=== PATIENT | male | born 2000 | race Caucasian/White ===

== ENCOUNTER 2022-11-19 08:37 | Outpatient (AMB) | payer OTHER, SELFPAY ==
[2022-11-19 08:40] VITALS: BP 122/70; PULSE 64; O2SAT 98; BMI 26.3
--- NOTE | 2022-11-19 08:40 | A.OFFPC_ITS ---
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 Trimmer Required: No Allergies No Known Allergies Allergy (Verified 11/19/22 08:49) Medication List - Last Reconciled 11/19/22 by SHAGGY Butler No Known Home Meds Tobacco use date assessed: 11/19/22 Dental Screening Dental Screen Date: 11/19/22 Did you have a dental visit in the last 12 months?: Yes Did you have a dental problem in the last 6 months where you did not have access to dental care?: No Was dental information given to patient?: Patient has dentist HPI 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 Previous PCP at [facility] about 2 years ago. Medical h istory significant for bilateral hip pain R>L - patient reports that in the past he was diagnosed with right hip ligament sprain - reports pain for the past 1 year - denies injury - pain is with prolonged walking or activity-does not take anything for pain-denies numbness or tingling, ganglion cyst of right hand-would like to be seen by specialist ? Removal, anxiety-followed by [facility] therapist. Al so patient would like to be tested for ADHD due to difficulty concentrating. Tdap 2014. No shortness of breath or chest pain. Patient goes to college and he lives with his father and grandmother. [facility] Surgical History History of appendectomy Family History (Updated 11/19/22 @ 08:54 by SHAGGY Butler) Mother No problems noted. Father No problems noted. Social History Housing: Apartment Patient Tobacco Use Status: Never used Tobacco service: No Current occupational status: unemployed Cognitive needs: No Hearing needs: No Vision needs: No Questionnaire PHQ-9 Over the last 2 weeks, how often have you been bothered by any of the following problems? 1. Little interest or pleasure in doing things: not at all 2. Feeling down, depressed, or hopeless: not at all 3. Trouble falling or staying asleep, or sleeping too much: not at all 4. Feeling tired or having little energy: not at all 5. Poor appetite or overeating: not at all 6. Feeling bad about yourself - or that you are a failure or have let yourself or your family down: not at all 7. Trouble concentrating on things, such as reading the newspaper or watching television: not at all 8. Moving or speaking so slowly that other people could have noticed. Or the opposite - being so fidgety or restless that you have been moving around a lot more than usual: not at all 9. Thoughts that you would be better off or of hurting yourself in some way: not at all Total score: 0 Depression Screening Interpretation: Negative Depression Screening Done: Yes 79819 - PHQ-9 Billing: Yes Source: Developed by Drs. Wyatt العراقي, Leighann Anne, Tad Car and colleagues, with an educational clotilde from [employer]. Thrive Questionnaire Date Thrive assessed: 11/19/22 I am a: Patient What is your living situation today?: I have a steady place to live Within the past 12 months, did the food you bought not last and you didn't have the money to get more?: Never true Within the past 12 months, did you worry whether your food would run out before you got money to buy more?: Never true Do you have trouble paying for medicines?: No Do you have trouble getting transportation to medical appointments?: No Do you have trouble paying your heating and electricity bill?: No Do you have trouble taking care of your child, family member or friend?: No Do you have trouble with day-to-day activities such as bathing, preparing meals, shopping, managing finances, etc.?: No Are you currently unemployed and looking for a job?: No Are you interested in more education?: No Currently or been in a relationship where the following occur: no concerns reported AUDIT C Alcohol Use Questionnaire (AUDIT-C) 1. How often do you have a drink containing alcohol?: Monthly or less 2. How many drinks containing alcohol do you have on a typical day when you are drinking?: 1 or 2 3. How often do you have six or more drinks on one occasion?: Never Total Score: 1 Score Reviewed/Action Taken: No STEFANY-7 AMB Questionnaire STEFANY-7 Date STEFANY - 7 assessed: 11/19/22 Feeling nervous, anxious, or on edge: 2 = More than half the days Not being able to stop or control worryin = More than half the days Worrying too much about different things: 2 = More than half the days Trouble relaxin = More than half the days Being so restless that it is hard to sit still: 3 = Nearly every day Becoming easily annoyed or irritable: 2 = More than half the days Feeling afraid as if something awful might happen: 0 = Not at all Total STEFANY-7 score (0-4 normal; 5-9 mild; 10-14 moderate; 15-21 severe): 13 Source: Developed by Drs. Wyatt العراقي, Leighann Anne, Tad Car and colleagues, with an educational clotilde from [employer]. STEFANY-7 Assessment Billing STEFANY-7 Assessment Tool: STEFANY-7 Assessment 65885 Review of Systems Const Denies body aches, Denies chills, Denies fever(s) and Denies headache(s) Eyes Denies change in vision ENT Denies dizziness, Denies otalgia, Denies headache(s), Denies nasal discharge, Denies sinus pain and Denies sore throat Card Denies chest pain, Denies edema, Denies lightheadedness and Denies dyspnea Resp Denies cough, Denies dyspnea and Denies wheezing GI Denies abdominal pain, Denies constipation, Denies diarrhea, Denies nausea and Denies vomiting Denies dysuria Musc Denies myalgias, Reports arthralgias, Denies joint swelling, Denies numbness and Denies tingling Skin/Breast Denies rash Neuro Denies dizziness, Denies headache(s), Denies numbness and Denies tingling Aller/Immun Denies wheezing Physical exam (Primary Care) Vital Signs: Last Vital Signs Pulse 64 11/19/22 08:40 BP 122/70 11/19/22 08:40 Pulse Ox 98 11/19/22 08:40 Oxygen Delivery Method Room Air 11/19/22 08:40 BMI result Body Mass Index 26.3 Tobacco/Smoking Status: Tobacco use Status Tobacco use date assessed 11/19/22 11/19/22 08:46 Patient Tobacco Use Status Never used Tobacco 11/19/22 08:46 PHQ-9: PHQ-9 Score PHQ-9: Total score 0 11/19/22 08:56 Depression Screening Interpretation: Negative Thrive Assessment: Date of Thrive Assessment Date Thrive assessed 11/19/22 11/19/22 08:46 Currently or been in a relationship where the following occur: no concerns reported Const General: cooperative and no acute distress Orientation/consciousness: patient oriented x3 HENMT Head: Yes normocephalic and Yes atraumatic Ears: TM's normal bilaterally Face and sinus: Yes sinuses nontender Mouth: oropharynx normal and moist mucous membranes Throat: Yes posterior oropharynx normal Eyes General: appearance normal, both eyes and all related structures Pupils: Equal, round and reactive pupils present EOM: EOMs intact bilaterally Neck Neck: Yes normal visual inspection, Yes full ROM and Yes no lymphadenopathy Thyroid: Thyroid normal Resp Effort & Inspection: normal respiratory effort and able to speak in complete sentences Auscultation: clear to auscultation bilaterally, no crackles, no rales, no rhonchi and no wheezes Cardio Rate: regular rate Rhythm: regular rhythm Heart sounds: S1 normal heart sound present, S2 normal heart sound present and no murmurs GI Palpation (GI): Soft to palpation, not firm, nontender, no guarding, not rigid and no hepatosplenomegaly Auscultation: normal bowel sounds General: No CVA tenderness Back/Spine/Pelvis Back: No CVA tenderness Skin Other: Right wrist dorsal aspect slightly raised about 1cm tender area, skin is intact, no signs of infection noted Neuro General: patient oriented x3 Cranial nerves: Yes Equal, round and reactive pupils present Gait exam (Neuro): Normal gait present Extrem Other: Right hip nontender, pain with range of motion Left hip nontender, normal range of motion General: Yes full ROM and No edema Assessment and Plan Assessment & Plan (1) Anxiety: Code(s): F41.9 - Anxiety disorder, unspecified Plan: Continue to follow-up with therapist at [facility] (2) Adult general medical exam: Code(s): Z00.00 - Encounter for general adult medical examination without abnormal findings Plan: Repeat in 1 year Blood work ordered (3) ADHD (attention deficit hyperactivity disorder) evaluation: Code(s): Z13.39 - Encounter for screening examination for other mental health and behavioral disorders Plan: Psychiatry referral for ADHD evaluation (4) Ganglion cyst: Comment: right wrist Code(s): M67.40 - Ganglion, unspecified site Plan: Orthopedic referral for an evaluation (5) Bilateral hip pain: Code(s): M25.551 - Pain in right hip; M25.552 - Pain in left hip Plan: Suspect musculoskeletal in origin Physical therapy referral Patient can try [id number] Tylenol 650 mg every 6 hours as needed or ibuprofen 400 mg every 8 hours as needed for pain Follow-up if no improvement after physical therapy Orders: Orders Vitamin B12 and Folate 11/19/22 Z00.00 - Encounter for general adult medical examination without abnormal findings TSH reflex Free T4 11/19/22 Z00.00 - Encounter for general adult medical examination without abnormal findings Vitamin D 25-OH Total 11/19/22 Z00.00 - Encounter for general adult medical examination without abnormal findings Comprehensive Met. Panel 11/19/22 Z00.00 - Encounter for general adult medical examination without abnormal findings Complete Blood Count Auto Diff 11/19/22 Z00.00 - Encounter for general adult medical examination without abnormal findings PT Evaluation and Treatment 11/19/22 M25.551 - Pain in right hip, M25.552 - Pain in left hip Referrals Orthopedics Referral M67.40 - Ganglion, unspecified site Psychiatry Referral Z13.39 - Encounter for screening examination for other mental health and behavioral disorders Coding Level of Care Code New Pt Prev Care 18-39yr([id number] Diagnoses Anxiety F41.9 Adult general medical exam Z00.00 ADHD (attention deficit hyperactivity disorder) evaluation Z13.39 Ganglion cyst M67.40 Bilateral hip pain M25.551; M25.552 Additional Codes STEFANY-7 Assessment Billing - STEFANY-7 Assessment Tool: STEFANY-7 Assessment [id number] ([id number])
== END 2022-11-19 09:06 | disposition home or self-care (01) ==
PROVIDERS: PCP Nurse Practitioner Family; Visit Provider Nurse Practitioner Family
DX: Z00.00 Encounter for general adult medical examination without abnormal findings (principal); F41.9 Anxiety disorder, unspecified; Z13.39 Encounter for screening examination for other mental health and behavioral disorders; M67.40 Ganglion, unspecified site; M25.551 Pain in right hip; M25.552 Pain in left hip
CPT/HCPCS: 99385

== ENCOUNTER 2022-12-10 15:27 | Outpatient (REF) | payer OTHER, SELFPAY ==
[2022-12-10 15:44] LABS: MANUAL DIFF FLAG NO
[2022-12-10 16:21] LABS: Basophils Percent Auto 0.5 % (0-2); Eosinophils Absolute Auto 0.5 X10*3/uL (0.0-0.4); Eosinophils Percent Auto 7.9 % (0-4); Hematocrit 45.9 % (42.0-52.0); Hemoglobin 15.6 g/dl (14.0-18.0); Imm Gran Abs Auto 0.01 X10*3/uL (0.00-0.03); Imm Gran Pct Auto 0.2 % (0.0-0.4); Lymphocytes Absolute Auto 2.1 X10*3/uL (1.2-4.9); Lymphocytes Percent Auto 36.6 % (20-40); Mean Corpuscular Hemoglobin 29.7 pg (27.0-33.0); Mean Corpuscular Volume 87.3 fL (80.0-98.0); Mean Platelet Volume 11.5 fL (9.4-12.4); Monocytes Absolute Auto 0.5 X10*3/uL (0.1-1.2); Monocytes Percent Auto 7.9 % (2-11); Neutrophils Absolute Auto 2.7 x10*3/uL (2.0-8.3); Neutrophils Percent Auto 46.9 % (45-73); Platelet Count 211 X10*3/uL (160-400); Red Blood Count 5.26 X10*6/uL (4.60-5.80); Red Cell Distribution Width 12.6 % (11.0-16.0); White Blood Count 5.8 X10*3/uL (4.8-10.8)
[2022-12-10 16:52] LABS: Alanine Aminotransferase 18 U/L (0-40); Alkaline Phosphatase 102 U/L (39-117); Anion Gap 12 (12-20); Aspartate Amino Transferase 22 U/L (5-37); Bilirubin Total 0.8 mg/dL (0.0-1.0); Blood Urea Nitrogen 12 mg/dL (9-16); Calcium 10.1 mg/dL (8.4-10.2); Carbon Dioxide 29 mmol/L (22-29); Chloride 105 mmol/L (96-108); Estimated Glomerular Filt Rate > 60; Glucose Random 74 mg/dL (60-115); Potassium 3.8 mmol/L (3.3-5.1); Sodium 142 mmol/L (135-145); Total Protein 7.8 g/dL (6.5-8.0)
[2022-12-10 17:01] LABS: Vitamin D 25-OH Total 38.4 ng/mL (>30)
[2022-12-10 17:15] LABS: Folate 8.1 ng/mL (> or = 4.0); Vitamin B12 836 pg/mL (200-900)
[2022-12-10 18:24] LABS: Free T4 (Free Thyroxine) 0.89 ng/dL (0.71-1.85)
== END 2022-12-10 15:28 | disposition home or self-care (01) ==
LOC: HO.LAB 15:27
PROVIDERS: PCP Nurse Practitioner Family; Visit Provider Nurse Practitioner Family
DX: Z00.00 Encounter for general adult medical examination without abnormal findings (principal)
CPT/HCPCS: 36415; 80053; 82306; 82607; 82746; 84439; 84443; 85025

== ENCOUNTER 2023-05-16 12:00 | Outpatient (RCR) | payer OTHER, SELFPAY ==
--- NOTE | 2023-03-14 16:14 | MHC.PT.EP ---
[facility] [place] [facility] [place] [facility] [place] [facility] [address] Francisco J Hinojosa [address] [phone] F: [phone] F: [phone] F: [phone] F: [phone] Physical Therapy Plan of Care Date of Evaluation: 03/14/23 Date of Surgery: Diagnosis: pain in B hips Assessment: Rohit is a pleasant 22 yo male presenting to skilled physical therapy evaluation and treatment with c/o B hip pain. Pt reports gradual onset of sharp deep pain in B hips beginning ~1 year ago, with worsening s/s within the past 6 months. He denies prior injuries or recent imaging. Pt has the most functional difficulty with STS, prolonged sitting with hip IR, and is unable to participate in desired level of recreational activities. Upon evaluation, pt presents with pain, decreased hip ROM, significant hip flexor tightness, and impaired accessory joint mobility. Pt demonstrates postural deficits contributing to decreased hip stability which is exacerbated throughout gait and mobility. Current impairments in combination with physical activity/lifestyle changes are contributing to pain and impaired mobility. Rohit would benefit from skilled PT services to address muscular imbalances, increase hip/core stability, and provide education on body mechanics to maximize functional mobility and return to desired PLOF. Pt is recommended to participate in PT 2x/week for 4 weeks. Frequency and Duration: The patient will be seen 2x/week for 4 weeks Short Term Goals: Pt will demonstrate independence with initial HEP through teach-back method indicating proper adherence to PT Pt will achieve symmetrical pain free hip ROM WFL allowing for proper gait mechanics Pt will perform 10 consecutive STS with proper mechanics and no exacerbation of sx Side Stapler Goals: Pt will increase glute MMTs by at least 1/2 muscle grade showing improved hip stability necessary for weightbearing Pt will tolerate running 1 mile on even terrain with proper mechanics and no exacerbation of s/s Pt will demonstrate improved functional mobility as evidenced by statistically significant increase in LEFI outcome measure Treatment Plan: Modalities to reduce pain, spasms and effusion. Manual therapy to restore motion and function. Therapeutic exercise to improve strength and flexibility. Neuromuscular re-education for posture and balance. Therapeutic activities to return to functional activities of daily living. Electronically signed by: Amelia Ball, PT, DPT Please sign and return to therapist. Thank you for your referral.
--- NOTE | 2023-07-05 14:48 | MHC.PT.DC ---
[facility] [place] [facility] [place] [facility] [place] [facility] [address] Francisco J Hinojosa [address] [phone] F: [phone] F: [phone] F: [phone] F: [phone] Physical Therapy Discharge Report Diagnosis: pain in B hips Date of Surgery: Date of Evaluation: 03/14/23 Date of Discharge: 07/05/23 Treatments to Date: 8 Cancellations to Date: No Shows to Date: Discharge Status: Improved Function Independent with HEP Discharge Summary: Pt was seen for PT from 03/14/23-05/16/23. His last attended appointment was 05/16/23 From last PT note on 05/16/23 by JF: Rohit comes to therapy today with mild discomfort today and feeling pretty good. We introduced dynamic stretches and plyometric exercises today to help increase strength through his LE with good form throughout and good understanding from patient. Patient D/C today with updated HEP. Significant increase noted with his LEFI outcome measure. Electronically signed by: Amelia Ball, PT, DPT Please sign and return to therapist. Thank you for your referral.
== END 2023-07-05 14:48 | disposition home or self-care (01) ==
LOC: HO.PT 12:00
PROVIDERS: PCP Nurse Practitioner Family; Visit Provider Nurse Practitioner Family
DX: M25.551 Pain in right hip (principal); M25.552 Pain in left hip
CPT/HCPCS: 97110; 97112; 97140; 97161; 97530

== ENCOUNTER 2023-11-23 08:39 | Outpatient (AMB) | payer OTHER, SELFPAY ==
[2023-11-23 08:52] VITALS: BP 110/68; BMI 28.0
--- NOTE | 2023-11-23 08:52 | MHC.PC.OV ---
Vital Signs 11/23/23 08:52 Height 5 ft 10 in Weight 195 lb BMI 28.0 BP 110/68 Blood Pressure Location Lt brachial Position Sitting Intake Visit Reasons: Annual Exam Intake Note: Patient here for an annual physical exam Surgical Attendant Required: No Accompanied by: Self / Same As Patient Allergies No Known Allergies Allergy (Verified 11/23/23 08:58) Medication List - Last Reconciled 11/23/23 by Kenneth Blue PA-C No Known Home Meds Tobacco use date assessed: 11/23/23 Dental Screening Dental Screen Date: 11/23/23 Did you have a dental visit in the last 12 months?: No Did you have a dental problem in the last 6 months where you did not have access to dental care?: No Was dental information given to patient?: Patient has dentist HPI Annual Exam HPI Details Patient is a 23-year-old male here today for annual physical. This is the 1st time I am meeting this 23-year-old male with a past medical history significant for ADHD, anxiety and an elevated TSH. .. Patient reports he would like to be evaluated for ADD or ADHD disorder. He denies any major issues in his employment or in school. 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 .. Right hip pain: He continues to have right hip pain particularly when doing physical activity. Has done physical therapy in the past which has helped him during the time use doing therapy. He does not take any anti-inflammatory or Tylenol for his pain. 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 1. Little interest or pleasure in doing things: not at all 2. Feeling down, depressed, or hopeless: several days 3. Trouble falling or staying asleep, or sleeping too much: nearly every day 4. Feeling tired or having little energy: nearly every day 5. Poor appetite or overeating: nearly every day 6. Feeling bad about yourself - or that you are a failure or have let yourself or your family down: not at all 7. Trouble concentrating on things, such as reading the newspaper or watching television: not at all 8. Moving or speaking so slowly that other people could have noticed. Or the opposite - being so fidgety or restless that you have been moving around a lot more than usual: not at all 9. Thoughts that you would be better off or of hurting yourself in some way: not at all Total score: 10 Depression Screening Interpretation: Positive Depression Screening Follow-up: New Medication prescribed and Community Mental Health Worker F/U Depression Screening Done: Yes 69285 - PHQ-9 Billing: Yes Source: Developed by Drs. Wyatt العراقي, Leighann Anne, Tad Car and colleagues, with an educational clotilde from [employer]. Thrive Questionnaire Date Thrive assessed: 11/23/23 I am a: Patient What is your living situation today?: I have a steady place to live Within the past 12 months, did the food you bought not last and you didn't have the money to get more?: Sometimes True Within the past 12 months, did you worry whether your food would run out before you got money to buy more?: Sometimes True Do you have trouble paying for medicines?: No Do you have trouble getting transportation to medical appointments?: No Do you have trouble paying your heating and electricity bill?: No Do you have trouble taking care of your child, family member or friend?: No Do you have trouble with day-to-day activities such as bathing, preparing meals, shopping, managing finances, etc.?: No Are you currently unemployed and looking for a job?: No Are you interested in more education?: No Please select the resources that you would like help with: None Currently or been in a relationship where the following occur: No concerns reported THRIVE Score: 2 AUDIT C Alcohol Use Questionnaire (AUDIT-C) 1. How often do you have a drink containing alcohol?: 2-4 times a month 2. How many drinks containing alcohol do you have on a typical day when you are drinking?: 5 or 6 3. How often do you have six or more drinks on one occasion?: Less than monthly Total Score: 5 STEFANY-7 AMB Questionnaire STEFANY-7 Date STEFANY - 7 assessed: 11/23/23 Feeling nervous, anxious, or on edge: 3 = Nearly every day Not being able to stop or control worryin = Nearly every day Worrying too much about different things: 3 = Nearly every day Trouble relaxin = Nearly every day Being so restless that it is hard to sit still: 3 = Nearly every day Becoming easily annoyed or irritable: 3 = Nearly every day Feeling afraid as if something awful might happen: 2 = More than half the days Total STEFANY-7 score (0-4 normal; 5-9 mild; 10-14 moderate; 15-21 severe): 20 Source: Developed by Drs. Wyatt العراقي, Leighann Anne, Tad Car and colleagues, with an educational clotilde from [employer]. STEFANY-7 Assessment Billing STEFANY-7 Assessment Tool: STEFANY-7 Assessment 15676 Review of Systems Const Denies body aches, Denies chills, Denies excessive sweating, Denies fatigue, Denies fever(s) and Denies headache(s) Eyes Denies blurry vision ENT Denies dysphagia, Denies vertigo, Denies dizziness, Denies headache(s), Denies hearing loss and Denies tinnitus Card Denies chest pain, Denies chest pain with activity, Denies syncope, Denies irregular heart rhythm and Denies dyspnea Resp Denies chest congestion, Denies cough, Denies hemoptysis, Denies dyspnea and Denies wheezing GI Denies abdominal pain, Denies melena, Denies hematochezia, Denies coffee ground emesis, Denies dysphagia, Denies diarrhea, Denies nausea and Denies vomiting Denies difficulty urinating, Denies dysuria, Denies urinary frequency, Denies urinary hesitancy and Denies urinary urgency Musc Denies arthralgias, Denies limited range of motion, Denies muscle cramps and Denies muscle weakness Skin/Breast Denies rash and Denies skin ulcer Neuro Denies Abnormal speech present, Denies confusion, Denies vertigo, Denies dizziness, Denies syncope, Denies headache(s), Denies memory loss and Denies seizure-like activity Psych Denies anxiety, Denies confusion, Denies depression, Denies memory loss, Denies panic attacks and Denies paranoia Endo Denies excessive sweating, Denies fatigue, Denies flushing, Denies polydipsia and Denies polyuria Aller/Immun Denies wheezing Physical exam (Primary Care) Vital Signs: Last Vital Signs BP 110/68 11/23/23 08:52 BMI result Body Mass Index 28.0 Tobacco/Smoking Status: Tobacco use Status Tobacco use date assessed 11/23/23 11/23/23 08:57 Patient Tobacco Use Status Current someday Tobacco 11/23/23 09:02 e-Cigarette/Vaping Use Never Used 11/23/23 09:02 PHQ-9: PHQ-9 Score PHQ-9: Total score 10 11/23/23 09:59 Depression Screening Interpretation: Positive Depression Screening Follow-up: New Medication prescribed and Community Mental Health Worker F/U Thrive Assessment: Date of Thrive Assessment Date Thrive assessed 11/23/23 11/23/23 08:57 Currently or been in a relationship where the following occur: No concerns reported Const General: cooperative, comfortable, no acute distress, alert and awake; No confusion Orientation/consciousness: oriented to person, oriented to place, patient oriented x3 and No confusion HENMT Head: Yes normocephalic Ears: external ears normal and TM's normal bilaterally Face and sinus: No sinus tenderness Mouth: Normal oral and palatal mucosa present and tongue normal Teeth and gingiva: dentition normal and gingiva normal Throat: Yes posterior oropharynx normal, Yes tonsils normal and Yes uvula midline Eyes Conjunctivae: conjunctivae normal Sclerae: sclerae normal Pupils: Equal, round and reactive pupils present EOM: EOMs intact bilaterally Direct Ophthalmoscopy: No no photophobia Neck Neck: Yes no lymphadenopathy, No tender and Yes no JVD Thyroid: Thyroid normal Carotids: no bruits Chest Chest palpation & inspection: no tenderness Resp Effort & Inspection: normal respiratory effort, no audible wheezes, not labored and no stridor Auscultation: no crackles, no rales, no rhonchi and no wheezes Cardio Jugular venous distension: no JVD Rate: regular rate, not bradycardic and not tachycardic Rhythm: regular rhythm Bruits: no carotid bruits Peripheral pulses: Peripheral pulses 2+ throughout GI Inspection: Yes normal to inspection, No abdominal wall ecchymosis and No visible herniation Palpation (GI): Soft to palpation, nontender, no guarding, not rigid and No hepatosplenomegaly present Auscultation: normoactive bowel sounds General: Yes no CVA tenderness Back/Spine/Pelvis Back: no CVA tenderness and No back tenderness Cervical Spine: cervical ROM normal Thoracic/Lumbar Spine: thoracic and lumbar spine normal to inspection, straight leg raise negative bilaterally, No thoraco-lumbar ROM limited and No lumbar spinal tenderness Skin Lesions: no lesions Rashes: no rashes Wounds: no wounds Neuro General: oriented to person, oriented to place, patient oriented x3, CN's II-XI intact bilaterally and No confusion Cranial nerves: Yes Equal, round and reactive pupils present and Yes Normal accommodation reflex present Cognition (Neuro): normal cognition Speech: No Abnormal speech present Gait exam (Neuro): Normal gait present Motor exam (neuro): 5/5 motor strength present throughout Extrem Right upper extremity: full ROM; no cyanosis Left upper extremity: full ROM; no cyanosis Right lower extremity: no edema Left lower extremity: no edema Psych Appearance: grossly normal Mental Status: mental status grossly normal Affect: normal affect Attitude: cooperative Thought process: Normal thought process present Coding Level of Care Code Est Pt Prev Care 18-39y(02118) Diagnoses Adult general medical exam Z00.00 ADHD (attention deficit hyperactivity disorder) evaluation Z13.39 Anxiety F41.9 Screening for diabetes mellitus (DM) Z13.1 Bilateral hip pain M25.551; M25.552 Additional Codes STEFANY-7 Assessment Billing - STEFANY-7 Assessment Tool: STEFANY-7 Assessment 50024 ([id number]) Assessment & Plan Assessment & Plan (1) Adult general medical exam: Code(s): Z00.00 - Encounter for general adult medical examination without abnormal findings Category: Medical Plan: As per HPI (2) ADHD (attention deficit hyperactivity disorder) evaluation: Code(s): Z13.39 - Encounter for screening examination for other mental health and behavioral disorders Category: Medical Plan: Patient reports he would like to be evaluated for ADHD. He reports as a child he was told he may have ADHD though was never treated for this. Does not have any major issues in his job or in school though is interested in perhaps getting a diagnosis and trying treatment. He is willing to try non stimulant ADHD medication thus will try Wellbutrin and will follow-up in 5 weeks to evaluate the effectiveness on medication. (3) Anxiety: Code(s): F41.9 - Anxiety disorder, unspecified Category: Medical Plan: Patient's STEFANY-7 score positive for anxiety which seems to have been existing condition for him. He is interested in talking to a mental health therapist (4) Screening for diabetes mellitus (DM): Code(s): Z13.1 - Encounter for screening for diabetes mellitus Category: Medical Plan: As per HPI (5) Bilateral hip pain: Code(s): M25.551 - Pain in right hip; M25.552 - Pain in left hip Category: Medical Plan: Patient reports continuing to have right hip pain with physical exertion. He did do physical therapy in the past and was told he may have hip flexor issue. Has not had x-ray thus will send for x-ray to evaluate for any arthritis. His signs and symptoms most consistent with a soft tissue issue. Would likely benefit from formal physical therapy again Orders: Orders TSH reflex Free T4 Today R79.89 - Other specified abnormal findings of blood chemistry Complete Blood Count no Diff Today Z13.1 - Encounter for screening for diabetes mellitus Comprehensive [place]. Panel Fast Today Z13.1 - Encounter for screening for diabetes mellitus XR hip RT min 2V Today M25.551 - Pain in right hip, M25.552 - Pain in left hip Referrals Psychiatry Outpatient Consultation Service F41.9 - Anxiety disorder, unspecified Counseling Referral F41.9 - Anxiety disorder, unspecified Medications: New bupropion HCl SR (Wellbutrin SR) 100 mg PO DAILY 30 tabs 1RF 30 days Z13.39 - Encounter for screening examination for other mental health and behavioral disorders
== END 2023-11-23 09:22 | disposition home or self-care (01) ==
PROVIDERS: PCP Nurse Practitioner Family; Visit Provider Physician Assistant
DX: Z00.00 Encounter for general adult medical examination without abnormal findings (principal); Z13.39 Encounter for screening examination for other mental health and behavioral disorders; F41.9 Anxiety disorder, unspecified; Z13.1 Encounter for screening for diabetes mellitus; M25.551 Pain in right hip; M25.552 Pain in left hip

== ENCOUNTER → 2023-11-23 08:39 | Outpatient (BNVA) | payer OTHER, SELFPAY | PROVIDERS: PCP Nurse Practitioner Family; Visit Provider Physician Assistant | DX: Z00.01 Encounter for general adult medical examination with abnormal findings (principal); F41.9 Anxiety disorder, unspecified; M25.551 Pain in right hip; M25.552 Pain in left hip | CPT/HCPCS: 96127; 99395 ==

== ENCOUNTER 2023-12-28 13:56 | Outpatient (AMB) | payer OTHER, SELFPAY ==
--- NOTE | 2023-12-28 13:56 | A.OFFPC_ITS ---
Vital Signs 12/28/23 13:57 Height 5 ft 10 in Intake Visit Reasons: f/u ADHD (telehealth) Allergies bupropion [From Wellbutrin SR] Adverse Reaction (Intermediate, Verified 12/28/23 14:21) Agitated Medication List - Last Reconciled 12/28/23 by Kenneth Blue PA-C bupropion HCl SR (Wellbutrin SR) 100 mg PO DAILY 30 days Tobacco use date assessed: 11/23/23 Dental Screening Dental Screen Date: 11/23/23 HPI f/u ADHD (telehealth) HPI Details Patient is a 23-year-old male being evaluated today via telephone. Patient has a past medical history significant for ADHD, anxiety and an elevated TSH. .. Patient reports he would like to be evaluated for ADD or ADHD disorder. He denies any major issues in his employment or in school. 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 He wanted to try medication thus we tried to Wellbutrin 100 mg SR though unfortunately caused him some anger and agitation thus he has stopped the medication. He is still willing to try medication to help him with his attention focus on work and personal life. We have referred him to outpatient psychiatry and has yet to set up appointment. 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 How often do you have a drink containing alcohol?: 2-4 times a month 2. How many drinks containing alcohol do you have on a typical day when you are drinking?: 5 or 6 3. How often do you have six or more drinks on one occasion?: Less than monthly Total Score: 5 STEFANY-7 AMB Questionnaire STEFANY-7 Date STEFANY - 7 assessed: 11/23/23 Source: Developed by Drs. Wyatt العراقي, Leighann Anne, Tad Car and colleagues, with an educational clotilde from [employer]. Review of Systems Const Denies headache(s) Eyes Denies loss of vision ENT Denies vertigo, Denies dizziness, Denies headache(s) and Denies sore throat Card Denies chest pain, Denies leg edema and Denies lightheadedness Resp Denies cough, Denies hemoptysis and Denies wheezing GI Denies abdominal pain, Denies melena, Denies constipation, Denies diarrhea and Denies vomiting Denies dysuria, Denies urinary frequency and Denies urinary urgency Musc Denies arthralgias, Denies joint swelling, Denies numbness and Denies tingling Neuro Denies Abnormal speech present, Denies behavioral changes, Denies vertigo, Denies dizziness, Denies headache(s), Denies loss of vision, Denies memory loss, Denies numbness and Denies tingling Psych Denies anxiety, Denies behavioral changes, Denies depression, Denies memory loss and Denies panic attacks Kervin/Lymph Denies easy bleeding and Denies easy bruising Aller/Immun Denies wheezing Physical exam (Primary Care) Tobacco/Smoking Status: Tobacco use Status Tobacco use date assessed 11/23/23 12/28/23 13:57 Patient Tobacco Use Status Current someday Tobacco 12/28/23 13:57 e-Cigarette/Vaping Use Never Used 12/28/23 13:57 Thrive Assessment: Date of Thrive Assessment Date Thrive assessed 11/23/23 12/28/23 13:57 Neuro Speech: No Abnormal speech present Telehealth Telehealth Telehealth Platform: Telephone Location of provider rendering services: practice address Location of patient: address on file Patient Identification confirmed using: Name, : Yes Telehealth method: voice only Patient verbally consented to treatment: Yes Patient verbally consented to billing insurance company: Yes Patient informed of any privacy concerns related to visit: Yes Minutes spent on Phone/Video with Pt.: 11 Coding Level of Care Code Tele Est Pt Level 3 (74622) Diagnoses ADHD (attention deficit hyperactivity disorder) evaluation Z13.39 Assessment & Plan Assessment & Plan (1) ADHD (attention deficit hyperactivity disorder) evaluation: Code(s): Z13.39 - Encounter for screening examination for other mental health and behavioral disorders Category: Medical Plan: As per HPI patient continues to have ADHD symptoms though no formal diagnosis. Has tried Wellbutrin though had agitation has a side effect. Will like to try medication to help him with his attention and focus thus will try Strattera 40 mg and up titrate per response. Medications: New atomoxetine (Strattera) 40 mg PO DAILY 30 days 30 caps 0RF Z13.39 - Encounter for screening examination for other mental health and behavioral disorders Discontinued bupropion HCl SR (Wellbutrin SR) Discontinued Reason: Doctor's Order 100 mg PO DAILY 30 days 30 tabs 1RF Z13.39 - Encounter for screening examination for other mental health and behavioral disorders
== END 2023-12-28 14:40 | disposition home or self-care (01) ==
LOC: HO.HMCH 13:56
PROVIDERS: PCP Nurse Practitioner Family; Visit Provider Physician Assistant
DX: Z13.39 Encounter for screening examination for other mental health and behavioral disorders (principal)

== ENCOUNTER 2024-01-31 09:48 | Outpatient (AMB) | payer OTHER, SELFPAY ==
[2024-01-31 09:58] VITALS: BP 120/60; PULSE 88; O2SAT 98; BMI 28.0
--- NOTE | 2024-01-31 09:58 | MHC.PC.OV ---
Vital Signs 01/31/24 09:58 Height 5 ft 10 in Weight 195 lb 2 oz BMI 28.0 BP 120/60 Blood Pressure Location Lt brachial Position Sitting Pulse 88 Pulse Source Pulse Oximeter Pulse Oximetry (%) 98 Oxygen Delivery Method Room Air Intake Visit Reasons: Possible strep Director Geothermal Operations Required: No Accompanied by: Self / Same As Patient Allergies bupropion [From Wellbutrin SR] Adverse Reaction (Intermediate, Verified 01/31/24 10:13) Agitated Medication List - Last Reconciled 01/31/24 by Kenneth Blue PA-C atomoxetine 40 mg PO DAILY Tobacco use date assessed: 11/23/23 Dental Screening Dental Screen Date: 11/23/23 HPI Possible strep HPI Details The patient is a 23-year-old male presenting with throat discomfort, specifically a dry and scratchy sensation upon waking at night that has persisted for the past two days. He attributes his symptoms to potential exposure to streptococcal pharyngitis via his girlfriend, who was diagnosed and began antibiotic treatment this morning. The patient reports difficulty swallowing, particularly at night, with throat dryness described as a sensation of sandpaper, leading to awakening and the need to drink water for relief. Cough drops have provided only temporary alleviation of symptoms. His throat examination revealed white spots on the uvula suggestive of streptococcal infection. The patient denies prior history of allergy to antibiotics. He is also addressing ongoing management of ADHD; having transitioned from Wellbutrin to Strattera recently. The patient reports significant complications with indigestion upon taking Strattera, particularly when ingested in the morning on an empty stomach. Attempts to ameliorate these symptoms included concurrent food intake with medication, with limited success. As the patient experienced persistent gastroesophageal reflux-like symptoms, he ceased the medication. Past attempts included switching to Wellbutrin, and upcoming plans might involve consulting about the use of guanfacine. He questions if adjusting the timing of Strattera intake to evening may alleviate gastroesophageal symptoms. 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 Cognitive needs: No Hearing needs: No Vision needs: No Questionnaire Thrive Questionnaire Date Thrive assessed: 11/23/23 I am a: Patient What is your living situation today?: I have a steady place to live Within the past 12 months, did the food you bought not last and you didn't have the money to get more?: Sometimes True Within the past 12 months, did you worry whether your food would run out before you got money to buy more?: Sometimes True Do you have trouble paying for medicines?: No Do you have trouble getting transportation to medical appointments?: No Do you have trouble paying your heating and electricity bill?: No Do you have trouble taking care of your child, family member or friend?: No Do you have trouble with day-to-day activities such as bathing, preparing meals, shopping, managing finances, etc.?: No Are you currently unemployed and looking for a job?: No Are you interested in more education?: No Please select the resources that you would like help with: None Currently or been in a relationship where the following occur: No concerns reported THRIVE Score: 2 STEFANY-7 AMB Questionnaire STEFANY-7 Date STEFANY - 7 assessed: 11/23/23 Source: Developed by Drs. Wyatt العراقي, Leighann Anne, Tad Car and colleagues, with an educational clotilde from [employer]. Review of Systems Const Denies headache(s) Eyes Denies loss of vision ENT Denies vertigo, Denies dizziness, Denies headache(s) and Denies sore throat Card Denies chest pain, Denies leg edema and Denies lightheadedness Resp Denies cough, Denies hemoptysis and Denies wheezing GI Denies abdominal pain, Denies melena, Denies constipation, Denies diarrhea and Denies vomiting Denies dysuria, Denies urinary frequency and Denies urinary urgency Musc Denies arthralgias, Denies joint swelling, Denies numbness and Denies tingling Neuro Denies Abnormal speech present, Denies behavioral changes, Denies vertigo, Denies dizziness, Denies headache(s), Denies loss of vision, Denies memory loss, Denies numbness and Denies tingling Psych Denies anxiety, Denies behavioral changes, Denies depression, Denies memory loss and Denies panic attacks Kervin/Lymph Denies easy bleeding and Denies easy bruising Aller/Immun Denies wheezing Physical exam (Primary Care) Vital Signs: Last Vital Signs Pulse 88 01/31/24 09:58 BP 120/60 01/31/24 09:58 Pulse Ox 98 01/31/24 09:58 Oxygen Delivery Method Room Air 01/31/24 09:58 BMI result Body Mass Index 28.0 Tobacco/Smoking Status: Tobacco use Status Tobacco use date assessed 11/23/23 01/31/24 09:59 Patient Tobacco Use Status Current someday Tobacco 01/31/24 09:59 e-Cigarette/Vaping Use Never Used 01/31/24 09:59 Thrive Assessment: Date of Thrive Assessment Date Thrive assessed 11/23/23 01/31/24 09:59 Currently or been in a relationship where the following occur: No concerns reported Const General: healthy appearing, no acute distress, alert and awake Nutritional Appearance: well nourished Orientation/consciousness: oriented to person, oriented to place and oriented to time HENMT Other: NOTED TONSILLAR EXUDATES AND UVULAR INFLAMMATION. Ears: TM's normal bilaterally General nose exam: Normal nasal mucous membranes and turbinates present Throat: Yes abnormal tonsil and Yes uvular edema Eyes Conjunctivae: conjunctivae normal Sclerae: sclerae normal Pupils: Equal, round and reactive pupils present Neck Neck: Yes no lymphadenopathy and Yes no JVD Thyroid: Thyroid normal Carotids: no bruits Resp Effort & Inspection: normal respiratory effort and not tachypneic Auscultation: no crackles, no rales, no rhonchi and no wheezes Cardio Rate: regular rate Rhythm: regular rhythm Heart sounds: no murmurs and normal S1 and S2 GI Palpation (GI): Soft to palpation, nontender, no hepatomegaly and no splenomegaly Auscultation: normal bowel sounds Skin General skin exam: no rashes or lesions noted and dry skin Neuro General: oriented to person, oriented to place and oriented to time Cranial nerves: Yes Equal, round and reactive pupils present Speech: No Abnormal speech present Gait exam (Neuro): Normal gait present Motor exam (neuro): no tremor noted Extrem Right upper extremity: full ROM Left upper extremity: full ROM Right lower extremity: full ROM; no edema Left lower extremity: full ROM; no edema Psych Mental Status: mental status grossly normal Speech and movement: Normal speech and movement present Affect: normal affect Attitude: cooperative Thought process: Normal thought process present Coding Level of Care Code Est Pt Level 4 (19396) Diagnoses Strep throat J02.0 ADHD (attention deficit hyperactivity disorder) evaluation Z13.39 Assessment & Plan Assessment & Plan (1) Strep throat: Code(s): J02.0 - Streptococcal pharyngitis Category: Medical Plan: Patient tested positive today for rapid strep. Will supply patient with amoxicillin for the next week and a few days of prednisone for pharyngeal inflammation. (2) ADHD (attention deficit hyperactivity disorder) evaluation: Code(s): Z13.39 - Encounter for screening examination for other mental health and behavioral disorders Category: Medical Plan: Discussed introduction of guanfacine for ADHD management if Strattera continues to cause issues. - Advised follow-up outpatient psychiatric consultation scheduled for February 08 regarding ADHD management. Orders: Orders AMB Rapid Strep Screen Today J02.9 - Acute pharyngitis, unspecified Medications: New amoxicillin 500 mg PO Q8H 7 days 21 tabs 0RF J02.0 - Streptococcal pharyngitis prednisone 20 mg PO DAILY 4 days 4 tabs 0RF J02.0 - Streptococcal pharyngitis
== END 2024-01-31 10:28 | disposition home or self-care (01) ==
PROVIDERS: PCP Nurse Practitioner Family; Visit Provider Physician Assistant
DX: J02.0 Streptococcal pharyngitis (principal); Z13.39 Encounter for screening examination for other mental health and behavioral disorders

== ENCOUNTER → 2024-01-31 09:48 | Outpatient (BNVA) | payer OTHER, SELFPAY | PROVIDERS: PCP Nurse Practitioner Family; Visit Provider Physician Assistant | DX: J02.0 Streptococcal pharyngitis (principal) | CPT/HCPCS: 99212 ==

== ENCOUNTER 2024-02-09 16:24 | Outpatient (AMB) | payer OTHER, SELFPAY ==
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
== END 2024-02-09 17:43 | disposition home or self-care (01) ==
LOC: HO.HOP 16:24
PROVIDERS: PCP Physician Assistant; Visit Provider Clinical Nurse Specialist Psychiatric/Mental Health
DX: F41.1 Generalized anxiety disorder (principal)
CPT/HCPCS: 90792

== ENCOUNTER → 2024-02-09 16:24 | Outpatient (BNVA) | payer OTHER, SELFPAY | PROVIDERS: PCP Physician Assistant; Visit Provider Clinical Nurse Specialist Psychiatric/Mental Health | DX: F41.1 Generalized anxiety disorder (principal); Z71.89 Other specified counseling | CPT/HCPCS: 90792 ==

== ENCOUNTER 2024-03-01 16:11 | Outpatient (AMB) | payer OTHER, SELFPAY ==
--- NOTE | 2024-03-01 16:43 | MHC.OFFVISPS ---
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 He is tolerating the medication but little benefit thusfar. he reports no side effects; no dizzness. He has cut back on ETOH use. NO SI or HI. PHQ9=10 and STEFANY& = 14. Past Psychiatric History: outpt counseling while at [facility] Subjective Subjective Subjective Medication Compliance: Yes Side effects from medications: No Review of Systems Medical Review of Systems: unchanged Mental Status Exam Mental Status Exam Patient Appearance: Well Grooomed and Appropriate Patient Orientation: Person, Place, Time and Situation Level of Consciousness: Awake and Appropriate Patient Behavior: Appropriate and Cooperative Mood Description: Anxious Affect Description: Anxious Patient Cognition Impaired: No Ability to Follow Directions: Good Speech Pattern: Clear, Appropriate and Soft-Spoken Memory Description: Intact Hallucinations: None Delusions: Not Present Thought Process: Intact and Goal Oriented Thought Content: positive for Intact and positive for Goal Oriented Judgement: Good Assessment and Plan Assessment & Plan (1) STEFANY (generalized anxiety disorder): Status: Acute Code(s): F41.1 - Generalized anxiety disorder (2) ADHD (attention deficit hyperactivity disorder), combined type: Status: Acute Code(s): F90.2 - Attention-deficit hyperactivity disorder, combined type Assessment and Plan: rule out PTSD Plan continue tenex ER 1 mg daily at bedtime x 1 week and if no side effects increase to tenex ER 2mg (take two 1mg tablets) every night stay hydrates retrun in 4 weeks Medications: Changed From guanfacine ER 1 mg PO QPM 30 tabs 0RF To guanfacine ER 2 mg (2 x 1 mg) PO QPM 60 tabs 0RF Counseling and coordination of Care Pt. Self Management counseling: Maintenance-social rhythm, Mod caffeine/ETOH intake, Nutrition education and improvement and Problem solving Medication management counseling: Effectiveness, Side effects, Dosing range, Duration, Drug interaction and Adherence Diagnosis and Prognosis Counseling: Accuracy of diagnosis, Prognosis over time, Impact of diagnosis on life functions, Impact of family relationship, Problematic behaviors secondary to diagnosis and Adequacy of current interventions Details: I spent 30 minutes reviewing the record, seeing the patient and documenting in the medical record. Counseling provided to the patient/caregiver as outlined below. Addressed patient/caregiver concerns regarding current medication regime including effective adherence. Addressed patient/caregiver concerns regarding diagnosis and prognosis including accuracy of diagnosis, prognosis over time, impact of diagnosis. Addressed patient/caregiver concerns regarding impact of recent stressors. 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 raised by father and grandmother due to bio mom's mental health; has one sister 1.5 yrs older Substance History: THC every night - smal amount; ETOH 2 times a month; no other drugs Trauma History: yes Coding Level of Care Code Est Pt Level 4 (38939) Diagnoses STEFANY (generalized anxiety disorder) F41.1 ADHD (attention deficit hyperactivity disorder), combined type F90.2
== END 2024-03-01 16:46 | disposition home or self-care (01) ==
LOC: HO.HOP 16:11
PROVIDERS: PCP Physician Assistant; Visit Provider Clinical Nurse Specialist Psychiatric/Mental Health
DX: F41.1 Generalized anxiety disorder (principal); F90.2 Attention-deficit hyperactivity disorder, combined type
CPT/HCPCS: 99214

== ENCOUNTER → 2024-03-01 16:11 | Outpatient (BNVA) | payer OTHER, SELFPAY | PROVIDERS: PCP Physician Assistant; Visit Provider Clinical Nurse Specialist Psychiatric/Mental Health | DX: F41.1 Generalized anxiety disorder (principal); F90.2 Attention-deficit hyperactivity disorder, combined type; Z71.89 Other specified counseling | CPT/HCPCS: 99212 ==

== ENCOUNTER 2024-03-15 13:26 | Emergency (ER) | payer OTHER, SELFPAY ==
--- NOTE | ~2024-03-15 | XR_ITS ---
EXAMINATION: XR CHEST CLINICAL INFORMATION: cough COMPARISON: None available. TECHNIQUE: 2 views of the chest were obtained. FINDINGS: On the lateral projection, there is an anterior mediastinal oval opacity suggesting an anterior mediastinal mass. This measures approximately 4.3 x 3.2 cm. It is not well seen on the PA projection. Most likely thymic remnant in this age group although nonspecific on x-ray. The cardiac, hilar, and mediastinal contours are otherwise normal. The lungs are clear bilaterally. There is no pneumothorax or pleural effusion. There is no focal osseous or soft tissue abnormality. XR/XR chest 2V IMPRESSION: 1. No active lung disease. 2. Oval mass anterior mediastinum on lateral projection. Consider correlating with CT. Electronically signed by: Abdirashid Marin MD 03/15/2024 01:52 PM [facility]
--- NOTE | ~2024-03-15 | CT_ITS ---
EXAMINATION: CT CHEST WITH CONTRAST CLINICAL INFORMATION: Abnormal chest x-ray. Oval mass anterior mediastinum on lateral projection. COMPARISON: Chest x-ray 03/15/2024 TECHNIQUE: Multidetector volumetric CT imaging of the chest was obtained after the administration of 50 mL of Omnipaque 350 intravenous contrast without immediate adverse reactions. Axial MIP volume rendering provided. Sagittal and coronal reformatted images were obtained. This CT examination was performed using dose optimization techniques as appropriate, variously including the following: *Automated exposure control *Adjustment of mA and/or kV according to patient size (this includes techniques or standardized protocols for targeted exams where dose is matched to indication/reason for exam; i.e. extremities or head) *Use of iterative reconstruction technique FINDINGS: TAX COMMISSIONER: Expanded lungs. LUNGS: The lungs are well-expanded with glass nodules measuring 8 mm on axial slice 69/4 and 5 mm on axial slice 68/4 likely within the minor fissure. 2 mm nodular thickening is seen in the right major fissure on axial image 72/8. No additional pulmonary nodules seen. MEDIASTINUM: Thyroid lobes are symmetrical and normal. The central tracheal and bronchial airway is widely patent. There are small shotty lymph nodes in the mediastinum, nonspecific. There is residual anterior thymus noted. No pericardial effusion. No coronary artery calcifications. PLEURA: There is no pleural effusion. No pleural mass or thickening. AXILLA: Small bilateral nonspecific axillary lymph nodes. The chest wall is unremarkable. UPPER ABDOMEN: Visualized liver, spleen, pancreas and bilateral adrenal glands are unremarkable. OSSEOUS STRUCTURES: No aggressive lytic CT/CT chest w IV con IMPRESSION: 2 small groundglass nodules in right minor fissure and 2 mm thickening right major fissure likely fissural lymph nodes. There is no abnormal mass or nodule seen corresponding to chest x-ray findings performed earlier today. It is most likely an artifact Fleischner guidelines were followed. Electronically signed by: Brandon Weber MD 03/15/2024 04:12 PM [facility]
[2024-03-15 13:38] VITALS: BP 123/80; PULSE 101; RESP 16; TEMP 37.6; O2SAT 96; BMI 27.9
--- NOTE | 2024-03-15 13:38 | ED_ITS ---
HPI - Fever General Chief Complaint: Upper Respiratory Symptoms Stated Complaint: flu Time Seen by Provider: 03/15/24 13:45 Source: patient, family and RN notes reviewed Mode of arrival: ambulatory Limitations: no limitations History of Present Illness ED Provider: Sharona Silva PA-C HPI Narrative: This is a 23-year-old male who presents emergency department for evaluation of subjective fevers, body aches, cough, nausea/vomiting, body aches, which all started yesterday. Patient took an at home flu test which was positive. Denies any sick contacts. Denies any chest pain, shortness breath, abdominal pain, or diarrhea. No other complaints or concerns at this time. MD elicited complaint: fever and malaise Context: sick contacts Exacerbating factors: nothing Relieving factors: nothing Associated symptoms: myalgias, sore throat and cough Treatments prior to arrival fever: none Related Data Previous Rx's ?Medication ?Instructions ?Recorded guanfacine 1 mg tablet,extended 2 mg (2 x 1 mg) PO QPM #60 tabs 03/01/24 release 24 hr oseltamivir 75 mg capsule (Tamiflu) 75 mg PO BID 5 days #10 caps 03/15/24 Allergies Allergy/AdvReac Type Severity Reaction Status Date / Time bupropion AdvReac Intermediate Agitated Verified 03/15/24 13:41 [From Wellbutrin SR] Review of Systems 2 Review of Systems: Yes all other systems are reviewed and are negative Constitutional: Constitutional: Reports as per HPI [facility] Past Medical History Surgical History History of appendectomy Family History Family History Mother Mental health disorder Father Substance use disorder Social History Social History Housing: Apartment Alcohol intake: current Alcohol intake frequency: holidays/special occasions only Alcohol type: beer Patient Tobacco Use Status: Current someday Tobacco user e-Cigarette/Vaping Use: Never Used Second Hand Smoke Exposure: No Substance Use Type: Marijuana Advance Directives: No Advance Directives Information Provided: Yes service: No Current occupational status: employed 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 Cognitive needs: No Hearing needs: No Vision needs: No Physical Exam 2 Vital Signs: Vital Signs: Last Vital Signs Temp 98.7 F 03/15/24 16:57 Pulse 78 03/15/24 16:57 Resp 16 03/15/24 16:57 BP 125/62 03/15/24 16:57 Pulse Ox 98 03/15/24 16:57 O2 Del Method Room Air 03/15/24 16:57 BMI result Body Mass Index 27.9 Const: General: cooperative, comfortable and no acute distress O rientation/consciousness: patient oriented x3 Limitations: no limitations HEENT: Head: Yes normal to inspection, Yes normocephalic and Yes atraumatic Ears: hearing grossly normal bilaterally General nose exam: Normal external nose present Face and sinus: Yes normal facial exam Mouth: Normal oral and palatal mucosa present, oropharynx normal and moist mucous membranes Throat: Yes posterior oropharynx normal Eyes: General: appearance normal, both eyes and all related structures E yelids: Yes eyelids normal Conjunctivae: conjunctivae normal Sclerae: s clerae normal Pupils: Equal, round and reactive pupils present EOM: EOMs intact bilaterally Neck: Neck: Yes normal visual inspection, Yes full ROM and Yes no lymphadenopathy Lymphatic: no lymphadenopathy noted Chest: Chest palpation & inspection: normal inspection of the chest Resp: Effort & Inspection: normal respiratory effort and able to speak in complete sentences Auscultation: clear to auscultation bilaterally, no crackles, no rales, no rhonchi and no wheezes Cardio: Rate: regular rate Rhythm: regular rhythm Heart sounds: S1 normal heart sound present and S2 normal heart sound present GI: Inspection: Yes normal to inspection Skin: General skin exam: no rashes or lesions noted Trauma: no lacerations or abrasions Wounds: no wounds Neuro: General: patient oriented x3 and moves all extremities Cranial nerves: Yes Equal, round and reactive pupils present Extrem: General: Yes normal to inspection Right upper extremity: normal to inspection Left upper extremity: normal to inspection Right lower extremity: normal to inspection Left lower extremity: normal to inspection Course Course Course Narrative: This is a rapid medical exam performed by Mona Velasco PA-C. Patient is a 23-year-old male with a history of ADHD, anxiety, who presents with cough and cold symptoms x1 day. Associated fever, cough, nausea vomiting that began today. On exam of the patient's lungs are clear, he is not currently febrile, he took Tylenol this morning. We will obtain a chest x-ray, viral panel. Patient is hemodynamically stable and can return to the waiting room pending his full medical assessment. Reevaluation(s) Reevaluation #1: Xray revealing an Oval mass anterior mediastinum on lateral projection. Consider correlating with CT. Discussed with my attending, will obtain CT chest for further investigation. Reevaluation #2: CT chest revealing 2 small groundglass nodules in right minor fissure and 2 mm thickening right major fissure likely fissural lymph nodes. There is no abnormal mass or nodule seen corresponding to chest x-ray findings performed earlier today. It is most likely an artifact. Discussed with patient. Discussed conservative treatment with treating patient with OTC medications, however patient requesting treatment with tamiflu. Discussed side effects with patient. Will treat with tamiflu given pt + for influenza. Labs overall revealing no leukocytosis, stable H&H,Chemistry WNL. Pt with low platelets at 128k. This is lower than previous platelets. This may be viral in etiology, discussed with patient to f/u with PCP for repeat labs in 2-3 weeks to ensure this is improving. Given return precautions. Stable for d/c. Time: 16:52 Medications Administered Discontinued Medications Generic Name Dose Route Start Last Admin Trade Name Yossi PRN Reason Stop Dose Admin Sodium Chloride 1,000 mls @ 999 mls/hr 03/15/24 14:54 03/15/24 16:06 Ns IV 03/15/24 15:54 Infused .Q1H1M ONE Infusion Acetaminophen 1,000 mg in 100 mls @ 400 mls/hr 03/15/24 14:54 03/15/24 15:22 Ofirmev IV 03/15/24 15:08 Infused ONCE ONE Infusion Iohexol 100 ml 03/15/24 15:40 03/15/24 15:43 Iohexol 350 Mg/Ml 100 Ml Infus..Btl IV 03/15/24 15:41 65 ml ONCE ONE Administration Ondansetron HCl 4 mg 03/15/24 13:39 03/15/24 13:54 Ondansetron Odt 4 Mg Tab.Rapdis TRANSLINGU 03/15/24 13:40 4 mg ONCE ONE Administration Medical Decision Making Medical Decision Making MDM Narrative: This is a 23-year-old male who presents emergency department for evaluation of cough, congestion, subjective fevers and chills, body aches, nausea and vomiting which started yesterday. On arrival, patient mildly tachycardic at 101bpm all other vital signs within normal limits. He was given Zofran prior to my assessment. Abdomen is soft and nontender. Chest x-ray and viral swabs were ordered prior to my assessment, pending results. Differential Diagnosis Differential Diagnoses: The differential diagnosis associated with the presentation includes Flu, RSV, COVID, viral URI Lab Data MDM Lab Attestation statement: I reviewed the patient's lab results. See course 03/15/24 15:05 03/15/24 15:05 Labs: Lab Results 03/15/24 03/15/24 Range/Units 13:49 15:05 WBC 5.0 (4.8-10.8) X10*3/uL RBC 4.93 (4.60-5.80) X10*6/uL Hgb 14.9 (14.0-18.0) g/dl Hct 41.7 L (42.0-52.0) % MCV 84.6 (80.0-98.0) fL MCH 30.2 (27.0-33.0) pg MCHC 35.7 (31.0-36.0) g/dl RDW 12.7 (11.0-16.0) % Plt Count 128 L D (160-400) X10*3/uL MPV 11.2 (9.4-12.4) fL Immature Gran % (Auto) 0.2 (0.0-0.4) % Neut % (Auto) 75.3 H (45-73) % Lymph % (Auto) 5.6 L (20-40) % [place] % (Auto) 18.5 H (2-11) % Eos % (Auto) 0.2 (0-4) % Baso % (Auto) 0.2 (0-2) % Lymph # (Auto) 0.3 L (1.2-4.9) X10*3/uL [place] # (Auto) 0.9 (0.1-1.2) X10*3/uL Eos # (Auto) 0.0 (0.0-0.4) X10*3/uL Baso # (Auto) 0.0 (0.0-0.2) X10*3/uL Abs Immat Gran (auto) 0.01 (0.00-0.03) X10*3/uL Absolute Neuts (auto) 3.8 (2.0-8.3) x10*3/uL Absolute Nucleated RBC 0.000 (0.0-0.012) X10*3/uL Nucleated RBC % (auto) 0.0 (0.0-0.2) /100WBC Sodium 139 (135-145) mmol/L Potassium 3.5 (3.3-5.1) mmol/L Chloride 106 (96-108) mmol/L Carbon Dioxide 20 L (22-29) mmol/L Anion Gap 17 (12-20) BUN 10 (9-16) mg/dL Creatinine 0.81 (0.5-1.4) mg/dL Estim Creat Clear Calc 161.4 Estimated GFR > 60 Random Glucose 84 (60-115) mg/dL Calcium 9.2 D (8.4-10.2) mg/dL Total Bilirubin 0.7 (0.0-1.0) mg/dL AST 25 (5-37) U/L ALT 12 (0-40) U/L Alkaline Phosphatase 92 (39-117) U/L Total Protein 7.5 (6.5-8.0) g/dL Albumin 4.5 (3.5-5.0) g/dL Influenza Type A (PCR) POSITIVE A (Negative) Influenza Type B (PCR) NEGATIVE (Negative) RSV RNA Qual (PCR) NEGATIVE (Negative) SARS-CoV-2 RNA (RT-PCR) NEGATIVE (Negative) Radiology Impression Discussion of test interpretation with radiology: I have reviewed the radiologist's reading. Discharge Plan Discharge Clinical Impression: Influenza A Patient Disposition: Home, Self-Care Instructions: Influenza (ED) Additional Instructions: You were seen in the emergency department in you tested positive for the flu. Your chest x-ray did not show a pneumonia. We got a CT scan as there was a questionable mass, your CT scan was reassuring, you have nodules, and lymph nodes, follow-up with your primary care physician regarding these findings. Please drink plenty of fluids get plenty of rest. Alternate between ibuprofen and or Tylenol as needed for pain and symptoms. Your platelet count was low, please follow-up with your primary care physician regarding this, this may be attributed to the flu. Tamiflu is an antiviral, take as prescribed. If any new or worsening symptoms occur including but not limited to fevers not responding to Tylenol or Motrin, severe chest pain, shortness of breath, please seek emergent care. Prescriptions: New oseltamivir [Tamiflu] 75 mg capsule 75 mg PO BID 5 Days Qty: 10 0RF No Action guanfacine 1 mg tablet extended release 24 hr 2 mg PO QPM Qty: 60 0RF Stand Alone Forms: Work/School Release Interventions: ED Discharge Assessment Last Done: 03/15/24 16:57 Discharge Date/Time: 03/15/24 16:58 Print Language: Armenian
--- OUTSIDE RECORDS SUMMARY | 2024-03-15 13:50 | XMS_ITS | Clinical Summary ---
Author Organization [facility] Address [address] [place] [id number] Phone Care Team Providers Care Corporate Security Officer Name Role Phone Unavailable Primary Care Provider Unavailabl e Allergies No known active allergies Medications No known medications Active Problems Problem Noted Date Diagnosed Date Overweight 11/12/2016 Immunizations Immunization Administration Dates Next Due DTaP 5 11/04/2006, 6,01/16/2004,09/15,03/26/2003,2002 H1N1 04/17/2009,01/22/2009 HPV Vaccine 9 Valent 11/06/2015,02/20/2015,12/20 Hep A, ped/adol 11/06/2015,12/20/2014 Hep B, ped/adol 11/14/2003,2002,2002 Hib (HbOC) 09/16/2003 Hib (PRP-T) 03/26/2003,2002 IPV 11/04/2006, 4,03/26/2003,10/03 Influenza Split 10/27/2009 Influenza, injectable, quadrivalent 11/06/2015 Influenza, injectable, quadr ivalent, preservative free 11/12/2016,10/24/2014,11/09/2013,02/22 Influenza, injectable, trivalent 009,01/23/2008,11/04/2006,01/05,01/16/2004,11/14/2003 Influenza, intranasal, trivalent 01/20/2012,11/08 MMR 11/14/2003 MMRV 11/04/2006 Meningococcal Conj (Menactra) MCV4P 10/24/2014 Pneumococcal Conjugate 09/16/2003,03/26/2003, Tdap 10/24/2014 Varicella 11/14/2003 Family History Medical History Relation Name Comments Cancer (Childhood Onset) Maternal Grandmother Diabetes Paternal Grandmother Heart disease (Premature) Neg Hx Relation Name Status Comments Father Alive Father: Alive a nd well Maternal Grandmother Materna l grandmother: Lupus erythematosus Mother Alive Mother: Alive a nd well Other Family history of Diabetes mellitus Paternal Grandfather Pateryariel l grandfather: Stroke Paternal Grandmother Paterna l grandmother: Diabetes mellitus Sister Alive Sister: Alive a nd well Social History Tobacco Use Types Packs/Day Years Used Date Smoking Tobacco: Never Assessed Sex and Gender Information Value Date Recorded Sex Assigned at Not on file Legal Sex Male 5:15 PM EDT Gender Identity Not on file Sexual Orientation Not on file Last Filed Vital Signs Vital Sign Reading Time Taken Comments Blood Pressure 105/70 11/12/2016 2:51 PM EDT Pulse 77 11/12/2016 2:51 PM EDT Temperature 36.9 ??C (98.4 ??F) 04/22/2015 12:00 AM E DT Respiratory Rate - - Oxygen Saturation - - Inhaled Oxygen Concentration - - Weight 66.2 kg (146 lb) 11/12/2016 2:51 PM EDT Height 151.1 cm (4' 11.5 ) 11/06/2015 12:00 AM E DT Body Mass Index - - Plan of Treatment Health Maintenance Due Date Last Done Comments Men B Vaccine (1 of 2 - Standard) 2018 Influenza Vaccines (#1) 2023 11/13/19 17, 11/06/2015, 10/24/2014, Additional history exists COVID-19 Vaccine ( - season) 2023 DTaP,Tdap,and Td Vaccines (7 - Td or Tdap) 10/24/2024 10/24/2014, 11/04/2006, 01/05/2006, Additional history exists HIB Vaccines Completed 09/16/2003, 03/10, 2002 Pneumococcal Vaccine Completed 09/16/2003, 03/26/2003, 2002 Hepatitis B Vaccines Completed 11/14/2003, 2002, 2002 IPV Vaccines Completed 11/04/2006, 12/0 10/2003, 03/26/2003, Additional history exists MMR Vaccines Completed 11/04/2006, 11/14/2003 Varicella Vaccines Completed 11/04/2006, 11/14/2003 Meningococcal Vaccine Aged Out 10/24/2014 No jorge kirit eligible based on patient's age to complete this topic HPV Vaccines Completed 11/06/2015, 02/07, 12/20/2014 Hepatitis A Vaccines Completed 11/06/2015, 12/21/[address] [place] [id number] [facility] NON P[facility] PPO
--- OUTSIDE RECORDS SUMMARY | 2024-03-15 13:50 | XMS_ITS | Encounter Summary ---
Author Organization [facility] Address [address] [place] [address] Phone Care Team Providers Care Concert Or Lecture Hall Manager Name Role Phone Josep Nolasco MD Primary Care Provider Unavailabl e Encounter Details Date Type Department Care Team (Late st Contact Info) Description 09/21/2012 Documentation EM Family Medicine [address] [place] [address] Family Medicine, Physician [address] [place] [address] Social History Tobacco Use Types Packs/Day Years Used Date Smoking Tobacco: Never Assessed Sex and Gender Information Value Date Recorded Sex Assigned at Not on file Legal Sex Male 5:15 PM EDT Gender Identity Not on file Sexual Orientation Not on file documented as of this encounter Plan of Treatment Not on file documented as of this encounter Visit Diagnoses Not on filedocumented in this encounter Care Teams Concert Or Lecture Hall Manager Relationship Specialty Start Date End Date Josep Nolasco MD PCP - General 09/17/16 03/17/22 documented as of this encounter
--- OUTSIDE RECORDS SUMMARY | 2024-03-15 13:50 | XMS_ITS | Encounter Summary ---
Author Organization [facility] Address [address] [place] [address] Phone Care Team Providers Care Piping Drafter Name Role Phone Josep Nolasco MD Primary Care Provider Unavailabl e Encounter Details Date Type Department Care Team (Late st Contact Info) Description 01/19/2012 Documentation EM Family Medicine [address] [place] [address] Family Medicine, Physician [address] [place] [address] Social History Tobacco Use Types Packs/Day Years [...] on filedocumented in this encounter Care Teams Piping Drafter Relationship Specialty Start Date End Date Josep Nolasco MD PCP - General 09/17/16 03/17/22 documented as of this encounter
--- OUTSIDE RECORDS SUMMARY | 2024-03-15 13:50 | XMS_ITS | Encounter Summary ---
Author Organization [facility] Address [address] [place] [address] Phone Care Team Providers Care Burglar Alarm Operator Name Role Phone Josep Nolasco MD Primary Care Provider Unavailabl e Encounter Details Date Type Department Care Team (Late st Contact Info) Description 09/23/2016 Conversion Encounter [facility] - [address] [address] Social History Tobacco Use Types Packs/Day Years [...] on filedocumented in this encounter Care Teams Burglar Alarm Operator Relationship Specialty Start Date End Date Josep Nolasco MD PCP - General 09/17/16 03/17/22 documented as of this encounter
[2024-03-15] MEDS: Ondansetron ODT 4 MG TAB.RAPDIS TRANSLINGU (13:54)
[2024-03-15 14:38] LABS: Influenza A PCR POSITIVE (Negative); Influenza B PCR NEGATIVE (Negative); Resp Syncy Virus RNA Qual PCR NEGATIVE (Negative); SARS COV2 PCR INHOUSE NEGATIVE (Negative)
[2024-03-15] MEDS: 0.9 % Sodium Chloride 1,000 ML 999 ML IV (15:05)
[2024-03-15] MEDS: Acetaminophen 1,000 MG/100 ML PIGGYBACK 400 MG IV (15:07)
[2024-03-15 15:13] LABS: MANUAL DIFF FLAG NO
[2024-03-15 15:17] LABS: Basophils Percent Auto 0.2 % (0-2); Eosinophils Percent Auto 0.2 % (0-4); Hematocrit 41.7 % (42.0-52.0); Hemoglobin 14.9 g/dl (14.0-18.0); Imm Gran Abs Auto 0.01 X10*3/uL (0.00-0.03); Imm Gran Pct Auto 0.2 % (0.0-0.4); Lymphocytes Absolute Auto 0.3 X10*3/uL (1.2-4.9); Lymphocytes Percent Auto 5.6 % (20-40); Mean Corpuscular HGB Conc 35.7 g/dl (31.0-36.0); Mean Corpuscular Hemoglobin 30.2 pg (27.0-33.0); Mean Corpuscular Volume 84.6 fL (80.0-98.0); Mean Platelet Volume 11.2 fL (9.4-12.4); Monocytes Absolute Auto 0.9 X10*3/uL (0.1-1.2); Monocytes Percent Auto 18.5 % (2-11); Neutrophils Absolute Auto 3.8 x10*3/uL (2.0-8.3); Neutrophils Percent Auto 75.3 % (45-73); Platelet Count 128 X10*3/uL (160-400); Red Blood Count 4.93 X10*6/uL (4.60-5.80); Red Cell Distribution Width 12.7 % (11.0-16.0)
[2024-03-15 15:33] LABS: Alanine Aminotransferase 12 U/L (0-40); Albumin Level 4.5 g/dL (3.5-5.0); Anion Gap 17 (12-20); Aspartate Amino Transferase 25 U/L (5-37); Bilirubin Total 0.7 mg/dL (0.0-1.0); Blood Urea Nitrogen 10 mg/dL (9-16); Calcium 9.2 mg/dL (8.4-10.2); Carbon Dioxide 20 mmol/L (22-29); Chloride 106 mmol/L (96-108); Creatinine Clr Calc Pharmacy 161.4; Estimated Glomerular Filt Rate > 60; Glucose Random 84 mg/dL (60-115); Potassium 3.5 mmol/L (3.3-5.1); Sodium 139 mmol/L (135-145); Total Protein 7.5 g/dL (6.5-8.0)
[2024-03-15] MEDS: iohexoL 350 MG/ML 100 ML INFUS..BTL IV (15:43)
[2024-03-15 15:44] LABS: Alkaline Phosphatase 92 U/L (39-117)
[2024-03-15 16:56] VITALS: BP 125/62; PULSE 78; RESP 16; TEMP 37.1; O2SAT 98
[2024-03-15 16:57] VITALS: BP 125/62; PULSE 78; RESP 16; TEMP 37.1; O2SAT 98
== END 2024-03-15 16:58 | disposition home or self-care (01) ==
PROVIDERS: Physician Assistant Medical; Emergency Provider Emergency Medicine; PCP Physician Assistant
DX: J10.1 Influenza due to other identified influenza virus with other respiratory manifestations (principal); R07.89 Other chest pain; R50.9 Fever, unspecified; M79.10 Myalgia, unspecified site; R05.9 Cough, unspecified; R11.2 Nausea with vomiting, unspecified; R10.2 Pelvic and perineal pain; Z03.818 Encounter for observation for suspected exposure to other biological agents ruled out
CPT/HCPCS: 0241U; 36415; 71046; 71260; 80053; 85025; 96361; 96374; 99284; J0131; Q9967

== ENCOUNTER → 2024-03-15 13:41 | Outpatient (BNV) | payer OTHER, SELFPAY | PROVIDERS: Emergency Provider Emergency Medicine; PCP Physician Assistant; Visit Provider Radiology Diagnostic Radiology | DX: R05.9 Cough, unspecified (principal); J98.59 Other diseases of mediastinum, not elsewhere classified | CPT/HCPCS: 71046; 71260 ==

== ENCOUNTER 2024-03-28 15:31 | Outpatient (AMB) | payer OTHER, SELFPAY ==
--- NOTE | 2024-03-28 15:31 | MHC.PC.OV ---
Intake Visit Reasons: f/u ADHD Socially Responsible Investment Adviser Required: No Information Interpreted: non-clinical & clinical Etl Tester: Not Required per policy Accompanied by: Self / Same As Patient Allergies bupropion [From Wellbutrin SR] Adverse Reaction (Intermediate, Verified 03/28/24 15:37) Agitated Medication List - Last Reconciled 03/28/24 by Kenneth Blue PA-C guanfacine ER 2 mg (2 x 1 mg) PO QPM Tobacco use date assessed: 03/28/24 Dental Screening Dental Screen Date: 03/28/24 Did you have a dental visit in the last 12 months?: Yes Did you have a dental problem in the last 6 months where you did not have access to dental care?: No Was dental information given to patient?: Patient has dentist HPI f/u ADHD HPI Details Patient is a 23-year-old male being evaluated today via phone. He is also addressing ongoing management of ADHD; having transitioned from Wellbutrin to Strattera recently. The patient reports significant complications with indigestion upon taking Strattera, particularly when ingested in the morning on an empty stomach. Attempts to ameliorate these symptoms included concurrent food intake with medication, with limited success. As the patient experienced persistent gastroesophageal reflux-like symptoms, he ceased the medication. Past attempts included switching to Wellbutrin, and upcoming plans might involve consulting about the use of guanfacine. He has followed up with an outpatient psychiatrist about the going office seen though has not been able to take the medication due to being recently sick with influenza. He has an upcoming appointment with psychiatry and will discuss ADHD, PTSD medication. Influence infection--> was seen at the [facility] for influenza infection. He was treated with Tamiflu. Labs were significant for a thrombocytopenia likely in the setting of illness. Otherwise no reports of bruising or bleeding.. 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 1. Little interest or pleasure in doing things: not at all 2. Feeling down, depressed, or hopeless: not at all 3. Trouble falling or staying asleep, or sleeping too much: not at all 4. Feeling tired or having little energy: not at all 5. Poor appetite or overeating: not at all 6. Feeling bad about yourself - or that you are a failure or have let yourself or your family down: not at all 7. Trouble concentrating on things, such as reading the newspaper or watching television: not at all 8. Moving or speaking so slowly that other people could have noticed. Or the opposite - being so fidgety or restless that you have been moving around a lot more than usual: not at all 9. Thoughts that you would be better off or of hurting yourself in some way: not at all Total score: 0 Depression Screening Interpretation: Negative Depression Screening Done: Yes 07747 - PHQ-9 Billing: Yes Source: Developed by Drs. Wyatt العراقي, Leighann Anne, Tad Car and colleagues, with an educational clotilde from [employer]. Thrive Questionnaire Date Thrive assessed: 03/28/24 I am a: Patient What is your living situation today?: I have a steady place to live Within the past 12 months, did the food you bought not last and you didn't have the money to get more?: Never true Within the past 12 months, did you worry whether your food would run out before you got money to buy more?: Never true Do you have trouble paying for medicines?: No Do you have trouble getting transportation to medical appointments?: No Do you have trouble paying your heating and electricity bill?: No Do you have trouble taking care of your child, family member or friend?: No Do you have trouble with day-to-day activities such as bathing, preparing meals, shopping, managing finances, etc.?: No Are you currently unemployed and looking for a job?: No Are you interested in more education?: No Please select the resources that you would like help with: None Currently or been in a relationship where the following occur: No concerns reported THRIVE Score: 0 STEFANY-7 AMB Questionnaire STEFANY-7 Date STEFANY - 7 assessed: 03/28/24 Feeling nervous, anxious, or on edge: 2 = More than half the days Not being able to stop or control worryin = More than half the days Worrying too much about different things: 2 = More than half the days Trouble relaxin = More than half the days Being so restless that it is hard to sit still: 2 = More than half the days Becoming easily annoyed or irritable: 2 = More than half the days Feeling afraid as if something awful might happen: 1 = Several days Total STEFANY-7 score (0-4 normal; 5-9 mild; 10-14 moderate; 15-21 severe): 13 Source: Developed by Drs. Wyatt العراقي, Leighann Anne, Tad Car and colleagues, with an educational clotilde from [employer]. STEFANY-7 Assessment Billing STEFANY-7 Assessment Tool: STEFANY-7 Assessment 65659 Review of Systems Const Denies headache(s) Eyes Denies loss of vision ENT Denies vertigo, Denies dizziness, Denies headache(s) and Denies sore throat Card Denies chest pain, Denies leg edema and Denies lightheadedness Resp Denies cough, Denies hemoptysis and Denies wheezing GI Denies abdominal pain, Denies melena, Denies constipation, Denies diarrhea and Denies vomiting Denies dysuria, Denies urinary frequency and Denies urinary urgency Musc Denies arthralgias, Denies joint swelling, Denies numbness and Denies tingling Neuro Denies behavioral changes, Denies vertigo, Denies dizziness, Denies headache(s), Denies loss of vision, Denies memory loss, Denies numbness and Denies tingling Psych Denies anxiety, Denies behavioral changes, Denies depression, Denies memory loss and Denies panic attacks Kervin/Lymph Denies easy bleeding and Denies easy bruising Aller/Immun Denies wheezing Physical exam (Primary Care) Tobacco/Smoking Status: Tobacco use Status Tobacco use date assessed 03/28/24 03/28/24 15:36 Patient Tobacco Use Status Current someday Tobacco 03/28/24 15:36 e-Cigarette/Vaping Use Never Used 03/28/24 15:36 PHQ-9: PHQ-9 Score PHQ-9: Total score 0 03/28/24 15:37 Depression Screening Interpretation: Negative Thrive Assessment: Date of Thrive Assessment Date Thrive assessed 03/28/24 03/28/24 15:36 Currently or been in a relationship where the following occur: No concerns reported Telehealth Telehealth Telehealth Platform: Telephone Location of provider rendering services: practice address Location of patient: address on file Patient Identification confirmed using: Name, : Yes Telehealth method: voice only Patient verbally consented to treatment: Yes Patient verbally consented to billing insurance company: Yes Patient informed of any privacy concerns related to visit: Yes Minutes spent on Phone/Video with Pt.: 11 Coding Level of Care Code Tele Est Pt Level 4 (44467) Diagnoses ADHD (attention deficit hyperactivity disorder), combined type F90.2 PTSD (post-traumatic stress disorder) F43.10 Thrombocytopenia D69.6 Additional Codes STEFANY-7 Assessment Billing - STEFANY-7 Assessment Tool: STEFANY-7 Assessment 82104 ([id number]) PHQ-9 - 27906 - PHQ-9 Billing: Yes ([id number]) Assessment & Plan Assessment & Plan (1) ADHD (attention deficit hyperactivity disorder), combined type: Code(s): F90.2 - Attention-deficit hyperactivity disorder, combined type Category: Medical Plan: Now followed by Psychiatry and is undergoing evaluation in med trial. Currently discussing guanfacine in as a treatment for his ADHD and PTSD (2) PTSD (post-traumatic stress disorder): Code(s): F43.10 - Post-traumatic stress disorder, unspecified Category: Medical Plan: As above (3) Thrombocytopenia: Code(s): D69.6 - Thrombocytopenia, unspecified Category: Medical Plan: Was found to thrombocytopenia at most recent ER visit in the setting of having influenza infection. Treated with Tamiflu. Will recheck CBC with diff due to the thrombocytopenia. Orders: Orders Complete Blood Count Auto Diff 03/28/24 D69.6 - Thrombocytopenia, unspecified
== END 2024-03-28 16:02 | disposition home or self-care (01) ==
LOC: HO.HMCH 15:31
PROVIDERS: PCP Physician Assistant; Visit Provider Physician Assistant
DX: F90.2 Attention-deficit hyperactivity disorder, combined type (principal); F43.10 Post-traumatic stress disorder, unspecified; D69.6 Thrombocytopenia, unspecified

== ENCOUNTER → 2024-03-28 15:31 | Outpatient (BNVA) | payer OTHER, SELFPAY | PROVIDERS: PCP Physician Assistant; Visit Provider Physician Assistant | DX: F90.2 Attention-deficit hyperactivity disorder, combined type (principal); F43.10 Post-traumatic stress disorder, unspecified; D69.6 Thrombocytopenia, unspecified | CPT/HCPCS: 96127 ==

== ENCOUNTER 2024-03-29 16:56 | Outpatient (AMB) | payer OTHER, SELFPAY ==
--- NOTE | 2024-03-29 16:37 | MHC.OFFVISPS ---
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 He has been off for 1.5 weeks; pt reports high anxietyin his relationship with GF; triggered by her talking about being together for ever on vallentines day- he hada panic attack. I talked with him about his family trauma and strongly recommended theray to talk it through; We also discussed trying to treat anxiety and panic first due to him feeling it is the thing getting in the way of his life more than the ADHD No SI no HI Past Psychiatric History: outpt counseling while at [facility] Subjective Subjective Subjective Medication Compliance: Yes Side effects from medications: No Review of Systems Medical Review of Systems: unchanged Mental Status Exam Mental Status Exam Patient Appearance: Well Grooomed and Appropriate Patient Orientation: Person, Place, Time and Situation Level of Consciousness: Awake and Appropriate Patient Behavior: Appropriate and Cooperative Mood Description: Anxious and Nervous Affect Description: Anxious and Nervous Patient Cognition Impaired: No Ability to Follow Directions: Good Speech Pattern: Clear and Appropriate Memory Description: Intact Hallucinations: None Delusions: Not Present Thought Process: Intact and Goal Oriented Thought Content: positive for Intact, positive for Goal Oriented and positive for Preoccupation Judgement: Fair Assessment and Plan Assessment & Plan (1) PTSD (post-traumatic stress disorder): Status: Acute Code(s): F43.10 - Post-traumatic stress disorder, unspecified (2) STEFANY (generalized anxiety disorder): Status: Acute Code(s): F41.1 - Generalized anxiety disorder (3) ADHD (attention deficit hyperactivity disorder), combined type: Status: Acute Code(s): F90.2 - Attention-deficit hyperactivity disorder, combined type Plan stop guanfacine for now start zoloft 25mg daily x 6 days then 50mg daily return in 4 weeks strongly recommend therapy Medications: New sertraline (Zoloft) Take 1/2 tablet (25mg) daily x 6 days then take one tablet daily thereafter orally daily; TAKE with food 30 tabs 1RF Counseling and coordination of Care Pt. Self Management counseling: General coping skills and Problem solving Medication management counseling: Effectiveness, Side effects, Dosing range, Duration, Drug interaction and Adherence Diagnosis and Prognosis Counseling: Accuracy of diagnosis, Prognosis over time, Impact of diagnosis on life functions, Impact of family relationship, Problematic behaviors secondary to diagnosis and Adequacy of current interventions Details: I spent 40 minutes reviewing the record, seeing the patient and documenting in the medical record. Counseling provided to the patient/caregiver as outlined below. Addressed patient/caregiver concerns regarding current medication regime including effective adherence. Addressed patient/caregiver concerns regarding diagnosis and prognosis including accuracy of diagnosis, prognosis over time, impact of diagnosis. Addressed patient/caregiver concerns regarding impact of recent stressors. 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 raised by father and grandmother due to bio mom's mental health; has one sister 1.5 yrs older Substance History: THC every night - smal amount; ETOH 2 times a month; no other drugs Trauma History: yes Coding Level of Care Code Est Pt Level 4 (08200) Diagnoses PTSD (post-traumatic stress disorder) F43.10 STEFANY (generalized anxiety disorder) F41.1 ADHD (attention deficit hyperactivity disorder), combined type F90.2
== END 2024-03-29 17:02 | disposition home or self-care (01) ==
LOC: HO.HOP 16:56
PROVIDERS: PCP Physician Assistant; Visit Provider Clinical Nurse Specialist Psychiatric/Mental Health
DX: F43.10 Post-traumatic stress disorder, unspecified (principal); F41.1 Generalized anxiety disorder; F90.2 Attention-deficit hyperactivity disorder, combined type
CPT/HCPCS: 99214

== ENCOUNTER → 2024-03-29 16:56 | Outpatient (BNVA) | payer OTHER, SELFPAY | PROVIDERS: PCP Physician Assistant; Visit Provider Clinical Nurse Specialist Psychiatric/Mental Health | DX: F43.10 Post-traumatic stress disorder, unspecified (principal); F41.1 Generalized anxiety disorder; F90.2 Attention-deficit hyperactivity disorder, combined type | CPT/HCPCS: 99212 ==

== ENCOUNTER 2024-04-23 16:38 | Outpatient (AMB) | payer OTHER, SELFPAY ==
--- NOTE | 2024-04-23 17:09 | MHC.OFFVISPS ---
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 pt reports less fear with zoloft; less pervasive hypervigilance. He does note sexual side effects. no SI or HI, no fozia, no psychosis. pt notes zoloft seem to be interfering with sleep Past Psychiatric History: outpt counseling while at [facility] Subjective Subjective Subjective Medication Compliance: Yes Side effects from medications: No Review of Systems Medical Review of Systems: unchanged Mental Status Exam Mental Status Exam Patient Appearance: Well Grooomed Patient Orientation: Person, Place and Time Level of Consciousness: Awake and Appropriate Patient Behavior: Appropriate and Cooperative Mood Description: Anxious Affect Description: Anxious Patient Cognition Impaired: No Hallucinations: None Delusions: Not Present Thought Process: Intact and Goal Oriented Judgement: Good Assessment and Plan Assessment & Plan (1) PTSD (post-traumatic stress disorder): Status: Acute Code(s): F43.10 - Post-traumatic stress disorder, unspecified (2) STEFANY (generalized anxiety disorder): Status: Acute Code(s): F41.1 - Generalized anxiety disorder Medications: New mirtazapine (Remeron) 15 mg PO BEDTIME 30 tabs 1RF Discontinued sertraline (Zoloft) Discontinued Reason: Doctor's Order Take 1/2 tablet (25mg) daily x 6 days then take one tablet daily thereafter orally daily; TAKE with food 30 tabs 1RF Counseling and coordination of Care Pt. Self Management counseling: Maintenance-social rhythm, Mod caffeine/ETOH intake and General coping skills Medication management counseling: Effectiveness, Side effects, Dosing range, Duration, Drug interaction and Adherence Diagnosis and Prognosis Counseling: Accuracy of diagnosis, Prognosis over time, Impact of diagnosis on life functions, Impact of family relationship, Problematic behaviors secondary to diagnosis and Adequacy of current interventions Details: I spent 35 minutes reviewing the record, seeing the patient and documenting in the medical record. Counseling provided to the patient/caregiver as outlined below. Addressed patient/caregiver concerns regarding current medication regime including effective adherence. Addressed patient/caregiver concerns regarding diagnosis and prognosis including accuracy of diagnosis, prognosis over time, impact of diagnosis. Addressed patient/caregiver concerns regarding impact of recent stressors. 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 raised by father and grandmother due to bio mom's mental health; has one sister 1.5 yrs older Substance History: THC every night - smal amount; ETOH 2 times a month; no other drugs Trauma History: yes Coding Level of Care Code Est Pt Level 4 (11984) Diagnoses PTSD (post-traumatic stress disorder) F43.10 STEFANY (generalized anxiety disorder) F41.1
--- OUTSIDE RECORDS SUMMARY | 2024-04-23 18:31 | XMS_ITS | Clinical Summary ---
Author Organization [facility] Address [address] [place] [phone] Phone Care Team Providers Care Refuse Collector Name Role Phone Unavailable Primary Care Provider [...] 11/06/2015, 12/21/[address] [place] [id number] [facility] NON PCC [facility] PPO
--- OUTSIDE RECORDS SUMMARY | 2024-04-23 18:31 | XMS_ITS | Encounter Summary ---
Author Organization [facility] Address [address] [place] [address] Phone Care Team Providers Care Battery Engineer Name Role Phone Josep Nolasco MD Primary Care Provider Unavailabl e Encounter Details Date Type Department Care Team (Late st Contact Info) Description 01/19/2012 Documentation EM Family Medicine [address] [place] [address] Family Medicine, Physician [address] [place] [address] Social History Tobacco Use Types Packs/Day Years [...] on filedocumented in this encounter Care Teams Battery Engineer Relationship Specialty Start Date End Date Josep Nolasco MD PCP - General 09/17/16 03/17/22 documented as of this encounter
--- OUTSIDE RECORDS SUMMARY | 2024-04-23 18:31 | XMS_ITS | Encounter Summary ---
Author Organization [facility] Address [address] [place] [address] Phone Care Team Providers Care Heel Seat Fitter Name Role Phone Josep Nolasco MD Primary Care Provider Unavailabl e Encounter Details Date Type Department Care Team (Late st Contact Info) Description 09/21/2012 Documentation EM Family Medicine [address] [place] [address] Family Medicine, Physician [address] [place] [address] Social History Tobacco Use Types Packs/Day Years [...] on filedocumented in this encounter Care Teams Heel Seat Fitter Relationship Specialty Start Date End Date Josep Nolasco MD PCP - General 09/17/16 03/17/22 documented as of this encounter
--- OUTSIDE RECORDS SUMMARY | 2024-04-23 18:31 | XMS_ITS | Encounter Summary ---
Author Organization [facility] Address [address] [place] [address] Phone Care Team Providers Care Hoop Maker Machine Name Role Phone Josep Nolasco MD Primary Care Provider Unavailabl e Encounter Details Date Type Department Care Team (Late st Contact Info) Description 09/23/2016 Conversion Encounter [facility] - [address] [address] Social History Tobacco Use Types Packs/Day Years [...] on filedocumented in this encounter Care Teams Hoop Maker Machine Relationship Specialty Start Date End Date Josep Nolasco MD PCP - General 09/17/16 03/17/22 documented as of this encounter
== END 2024-04-23 17:14 | disposition home or self-care (01) ==
LOC: HO.HOP 16:38
PROVIDERS: PCP Physician Assistant; Visit Provider Clinical Nurse Specialist Psychiatric/Mental Health
DX: F43.10 Post-traumatic stress disorder, unspecified (principal); F41.1 Generalized anxiety disorder
CPT/HCPCS: 99214

== ENCOUNTER → 2024-04-23 16:38 | Outpatient (BNVA) | payer OTHER, SELFPAY | PROVIDERS: PCP Physician Assistant; Visit Provider Clinical Nurse Specialist Psychiatric/Mental Health | DX: F41.1 Generalized anxiety disorder (principal); F43.10 Post-traumatic stress disorder, unspecified | CPT/HCPCS: 99212 ==

== ENCOUNTER 2024-05-21 16:55 | Outpatient (AMB) | payer OTHER, SELFPAY ==
--- NOTE | 2024-05-21 16:36 | A.OFFPSYCH_ITS ---
Intake Intake Visit Reasons: f/u consultation Allergies bupropion [From Wellbutrin SR] Adverse Reaction (Intermediate, Verified 03/28/24 15:37) Agitated Medication List - Last Reconciled 05/21/24 by Margi Fox APRN mirtazapine (Remeron) 15 mg PO BEDTIME HPI- Psychiatric Chief Complaint: f/u consultation HPI Narrative: Pt here for follow up re: anxiety. Pt reports little change in symptoms. pt tolerating the remeron 15mg daily but has not increased to 30mg daily. No side effects noted. Pt focused on finishing . he is future oriented; no SI or HI. sleep fair. Past Psychiatric History: outpt counseling while at [facility] Subjective Subjective Subjective Medication Compliance: Yes Side effects from medications: No Review of Systems Medical Review of Systems: unchanged Mental Status Exam Mental Status Exam Patient Appearance: Appropriate Patient Orientation: Person, Place, Time and Situation Level of Consciousness: Awake and Appropriate Patient Behavior: Appropriate Mood Description: Anxious Affect Description: Anxious Patient Cognition Impaired: No Ability to Follow Directions: Good Speech Pattern: Clear and Coherent Memory Description: Intact Hallucinations: None Delusions: Not Present Thought Process: Intact and Goal Oriented Thought Content: positive for Intact and positive for Goal Oriented Judgement: Good Telehealth Telehealth Telehealth Platform: Other (please specify) ([email or web address]) Location of provider rendering services: practice address Location of patient: address on file Patient Identification confirmed using: Name, : Yes Telehealth method: video Patient verbally consented to treatment: Yes Patient verbally consented to billing insurance company: Yes Patient informed of any privacy concerns related to visit: Yes Minutes spent on Phone/Video with Pt.: 28 Assessment and Plan Assessment & Plan (1) PTSD (post-traumatic stress disorder): Status: Acute Code(s): F43.10 - Post-traumatic stress disorder, unspecified (2) STEFANY (generalized anxiety disorder): Status: Acute Code(s): F41.1 - Generalized anxiety disorder (3) ADHD (attention deficit hyperactivity disorder), combined type: Status: Acute Code(s): F90.2 - Attention-deficit hyperactivity disorder, combined type Plan increase remeron 30 mg at bedtime Medications: New mirtazapine 30 mg PO BEDTIME 90 tabs 0RF Discontinued mirtazapine (Remeron) Discontinued Reason: Doctor's Order 15 mg PO BEDTIME 30 tabs 2RF Counseling and coordination of Care Pt. Self Management counseling: Maintenance-social rhythm, Mod caffeine/ETOH intake, Nutrition education and improvement, Sleep hygiene, Behavior activation, General coping skills and Problem solving Medication management counseling: Effectiveness, Side effects, Dosing range, Duration, Drug interaction and Adherence Diagnosis and Prognosis Counseling: Accuracy of diagnosis, Prognosis over time, Impact of diagnosis on life functions, Impact of family relationship, Problematic behaviors secondary to diagnosis and Adequacy of current interventions Details: I spent 35 minutes reviewing the record, seeing the patient and documenting in the medical record. Counseling provided to the patient/caregiver as outlined below. Addressed patient/caregiver concerns regarding current medication regime including effective adherence. Addressed patient/caregiver concerns regarding diagnosis and prognosis including accuracy of diagnosis, prognosis over time, impact of diagnosis. Addressed patient/caregiver concerns regarding impact of recent stressors. 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 raised by father and grandmother due to bio mom's mental health; has one sister 1.5 yrs older Substance History: THC every night - smal amount; ETOH 2 times a month; no other drugs Trauma History: yes Coding Level of Care Code Tele Est Pt Level 4 (19801) Diagnoses PTSD (post-traumatic stress disorder) F43.10 STEFANY (generalized anxiety disorder) F41.1 ADHD (attention deficit hyperactivity disorder), combined type F90.2
--- OUTSIDE RECORDS SUMMARY | 2024-05-21 18:32 | XMS_ITS | Encounter Summary ---
Author Organization [facility] Address [address] [place] [address] Phone Care Team Providers Care Bi Tri Operator Name Role Phone Josep Nolasco MD Primary Care Provider Unavailabl e Encounter Details Date Type Department Care Team (Late st Contact Info) Description 09/21/2012 Documentation EM Family Medicine [address] [place] [address] Family Medicine, Physician [address] [place] [address] Social History Tobacco Use Types Packs/Day Years [...] on filedocumented in this encounter Care Teams Bi Tri Operator Relationship Specialty Start Date End Date Josep Nolasco MD PCP - General 09/17/16 03/17/22 documented as of this encounter
--- OUTSIDE RECORDS SUMMARY | 2024-05-21 18:32 | XMS_ITS | Encounter Summary ---
Author Organization [facility] Address [address] [place] [address] Phone Care Team Providers Care Polisher Implant Name Role Phone Josep Nolasco MD Primary Care Provider Unavailabl e Encounter Details Date Type Department Care Team (Late st Contact Info) Description 01/19/2012 Documentation EM Family Medicine [address] [place] [address] Family Medicine, Physician [address] [place] [address] Social History Tobacco Use Types Packs/Day Years [...] on filedocumented in this encounter Care Teams Polisher Implant Relationship Specialty Start Date End Date Josep Nolasco MD PCP - General 09/17/16 03/17/22 documented as of this encounter
--- OUTSIDE RECORDS SUMMARY | 2024-05-21 18:32 | XMS_ITS | Encounter Summary ---
Author Organization [facility] Address [address] [place] [address] Phone Care Team Providers Care Epilepsy Physician Name Role Phone Josep Nolasco MD Primary Care Provider Unavailabl e Encounter Details Date Type Department Care Team (Late st Contact Info) Description 09/23/2016 Conversion Encounter [facility] - [address] [address] Social History Tobacco Use Types Packs/Day Years [...] on filedocumented in this encounter Care Teams Epilepsy Physician Relationship Specialty Start Date End Date Josep Nolasco MD PCP - General 09/17/16 03/17/22 documented as of this encounter
--- OUTSIDE RECORDS SUMMARY | 2024-05-21 18:32 | XMS_ITS | Clinical Summary ---
Author Organization [facility] Address [address] [place] [id number] Phone Care Team Providers Care Certified Pediatric Nurse Practitioner Name Role Phone Unavailable Primary Care Provider [...] 11/06/2015, 12/21/[address] [place] [phone] [facility] NON PCC [facility] PPO
== END 2024-05-21 16:58 | disposition home or self-care (01) ==
LOC: HO.HOP 16:55
PROVIDERS: PCP Physician Assistant; Visit Provider Clinical Nurse Specialist Psychiatric/Mental Health
DX: F43.10 Post-traumatic stress disorder, unspecified (principal); F41.1 Generalized anxiety disorder; F90.2 Attention-deficit hyperactivity disorder, combined type
CPT/HCPCS: 99214

== ENCOUNTER 2024-06-21 17:07 | Outpatient (AMB) | payer OTHER, SELFPAY ==
--- NOTE | 2024-06-21 16:52 | MHC.OFFVISPS ---
Intake Intake Visit Reasons: f/u consultation Allergies bupropion [From Wellbutrin SR] Adverse Reaction (Intermediate, Verified 03/28/24 15:37) Agitated Medication List - Last Reconciled 06/21/24 by Margi Fox APRN HPI- Psychiatric Chief Complaint: f/u consultation HPI Narrative: pt seen for follow up re; PTSD, ADHD, STEFANY. Pt stopped taking the remeron- felt it wasn't helping; Pt reports little change in symptoms.Pt continues to have significant anxiety and troubel concentratng. . Pt focused on finishing . he is future oriented; no SI or HI. sleep fair. Past Psychiatric History: outpt counseling while at [facility] Subjective Subjective Subjective Medication Compliance: Yes Side effects from medications: No Review of Systems Medical Review of Systems: unchanged Mental Status Exam Mental Status Exam Patient Appearance: Well Grooomed and Appropriate Patient Orientation: Person, Place, Time and Situation Level of Consciousness: Awake and Appropriate Patient Behavior: Appropriate and Cooperative Mood Description: Anxious Affect Description: Anxious Patient Cognition Impaired: No Ability to Follow Directions: Good Speech Pattern: Clear and Coherent Memory Description: Intact Hallucinations: None Delusions: Not Present Thought Process: Intact, Distracted and Goal Oriented Thought Content: positive for Intact and positive for Goal Oriented Judgement: Good Telehealth Telehealth Telehealth Platform: Other (please specify) ([email or web address]) Location of provider rendering services: practice address Location of patient: address on file Patient Identification confirmed using: Name, : Yes Telehealth method: video Patient verbally consented to treatment: Yes Patient verbally consented to billing insurance company: Yes Patient informed of any privacy concerns related to visit: Yes Minutes spent on Phone/Video with Pt.: 25 Assessment and Plan Assessment & Plan (1) PTSD (post-traumatic stress disorder): Status: Acute Code(s): F43.10 - Post-traumatic stress disorder, unspecified (2) ADHD (attention deficit hyperactivity disorder), combined type: Status: Acute Code(s): F90.2 - Attention-deficit hyperactivity disorder, combined type (3) STEFANY (generalized anxiety disorder): Status: Acute Code(s): F41.1 - Generalized anxiety disorder Plan start cymbalta as per below d/c remeron Medications: New duloxetine (Cymbalta) 30 mg orally take one cap daily x 14 days then take 2 caps daily; 60 caps 0RF Counseling and coordination of Care Pt. Self Management counseling: Exercise, Maintenance-social rhythm, Mindfulness, Mod caffeine/ETOH intake, Nutrition education and improvement and Sleep hygiene Medication management counseling: Effectiveness, Side effects, Dosing range, Duration, Drug interaction and Adherence Diagnosis and Prognosis Counseling: Accuracy of diagnosis, Prognosis over time, Impact of diagnosis on life functions, Impact of family relationship, Problematic behaviors secondary to diagnosis and Adequacy of current interventions Details: I spent 30 minutes reviewing the record, seeing the patient and documenting in the medical record. Counseling provided to the patient/caregiver as outlined below. Addressed patient/caregiver concerns regarding current medication regime including effective adherence. Addressed patient/caregiver concerns regarding diagnosis and prognosis including accuracy of diagnosis, prognosis over time, impact of diagnosis. Addressed patient/caregiver concerns regarding impact of recent stressors. 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 raised by father and grandmother due to bio mom's mental health; has one sister 1.5 yrs older Substance History: THC every night - smal amount; ETOH 2 times a month; no other drugs Trauma History: yes Coding Level of Care Code Tele Est Pt Level 4 (30694) Diagnoses PTSD (post-traumatic stress disorder) F43.10 ADHD (attention deficit hyperactivity disorder), combined type F90.2 STEFANY (generalized anxiety disorder) F41.1
--- OUTSIDE RECORDS SUMMARY | 2024-06-21 17:08 | XMS_ITS | Clinical Summary ---
Author Organization [facility] Address [address] [place] [id number] Phone Care Team Providers Care Merchandise Flow Team Member Name Role Phone Unavailable Primary Care Provider [...] 11/06/2015, 12/21/[address] [place] [phone] [facility] NON PCC [facility] PPO
--- OUTSIDE RECORDS SUMMARY | 2024-06-21 17:08 | XMS_ITS | Encounter Summary ---
Author Organization [facility] Address [address] [place] [address] Phone Care Team Providers Care Asl Interpreter Name Role Phone Josep Nolasco MD Primary Care Provider Unavailabl e Encounter Details Date Type Department Care Team (Late st Contact Info) Description 09/21/2012 Documentation EM Family Medicine [address] [place] [address] Family Medicine, Physician [address] [place] [address] Social History Tobacco Use Types Packs/Day Years [...] on filedocumented in this encounter Care Teams Asl Interpreter Relationship Specialty Start Date End Date Josep Nolasco MD PCP - General 09/17/16 03/17/22 documented as of this encounter
--- OUTSIDE RECORDS SUMMARY | 2024-06-21 17:08 | XMS_ITS | Encounter Summary ---
Author Organization [facility] Address [address] [place] [address] Phone Care Team Providers Care Wood Molder Name Role Phone Josep Nolasco MD Primary Care Provider Unavailabl e Encounter Details Date Type Department Care Team (Late st Contact Info) Description 01/19/2012 Documentation EM Family Medicine [address] [place] [address] Family Medicine, Physician [address] [place] [address] Social History Tobacco Use Types Packs/Day Years [...] on filedocumented in this encounter Care Teams Wood Molder Relationship Specialty Start Date End Date Josep Nolasco MD PCP - General 09/17/16 03/17/22 documented as of this encounter
--- OUTSIDE RECORDS SUMMARY | 2024-06-21 17:08 | XMS_ITS | Encounter Summary ---
Author Organization [facility] Address [address] [place] [address] Phone Care Team Providers Care Entry Level Sales Representative Name Role Phone Josep Nolasco MD Primary Care Provider Unavailabl e Encounter Details Date Type Department Care Team (Late st Contact Info) Description 09/23/2016 Conversion Encounter [facility] - [address] [address] Social History Tobacco Use Types Packs/Day Years [...] on filedocumented in this encounter Care Teams Entry Level Sales Representative Relationship Specialty Start Date End Date Josep Nolasco MD PCP - General 09/17/16 03/17/22 documented as of this encounter
== END 2024-06-21 17:12 | disposition home or self-care (01) ==
LOC: HO.HOP 17:07
PROVIDERS: PCP Physician Assistant; Visit Provider Clinical Nurse Specialist Psychiatric/Mental Health
DX: F43.11 Post-traumatic stress disorder, acute (principal); F90.2 Attention-deficit hyperactivity disorder, combined type; F41.1 Generalized anxiety disorder
CPT/HCPCS: 99214

== ENCOUNTER 2024-07-23 17:47 | Outpatient (AMB) | payer OTHER, SELFPAY ==
--- NOTE | 2024-07-23 16:36 | A.OFFPSYCH_ITS ---
Intake Intake Visit Reasons: f/u consultation Industrial Paramedic Required: No Allergies bupropion (From Wellbutrin SR) Adverse Reaction (Intermediate, Verified 03/28/24 15:37) Agitated Medication List - Last Reconciled 07/23/24 by Margi Fox APRN duloxetine 60 mg PO DAILY HPI- Psychiatric Chief Complaint: f/u consultation HPI Narrative: pt seen via telehealth for follow for depression and anxiety. pt improved with duloxetine ; sleep improved; has only been on the 60mg daily for 4 days; pt reports still overthinking at times; still has some anxiety;motivated to improve self care; wants to quit tobacco. Denies SI or HI. He is enjoying work and recently got a promotion. Past Psychiatric History: outpt counseling while at [facility] Subjective Subjective Subjective Medication Compliance: Yes Side effects from medications: No Review of Systems Medical Review of Systems: unchanged Mental Status Exam Mental Status Exam Patient Appearance: Well Grooomed and Appropriate Patient Orientation: Person, Place, Time and Situation Level of Consciousness: Awake and Appropriate Patient Behavior: Appropriate and Cooperative Mood Description: Anxious Affect Description: Anxious Patient Cognition Impaired: No Ability to Follow Directions: Good Speech Pattern: Clear and Coherent Memory Description: Intact Hallucinations: None Delusions: Not Present Thought Process: Intact, Distracted and Goal Oriented Thought Content: positive for Intact and positive for Goal Oriented Judgement: Good Telehealth Telehealth Telehealth Platform: Other (please specify) ([email or web address]) Location of provider rendering services: practice address Location of patient: address on file Patient Identification confirmed using: Name, : Yes Telehealth method: video Patient verbally consented to treatment: Yes Patient verbally consented to billing insurance company: Yes Patient informed of any privacy concerns related to visit: Yes Minutes spent on Phone/Video with Pt.: 25 Assessment and Plan Assessment & Plan (1) PTSD (post-traumatic stress disorder): Status: Acute Code(s): F43.10 - Post-traumatic stress disorder, unspecified (2) ADHD (attention deficit hyperactivity disorder), combined type: Status: Acute Code(s): F90.2 - Attention-deficit hyperactivity disorder, combined type (3) STEFANY (generalized anxiety disorder): Status: Acute Code(s): F41.1 - Generalized anxiety disorder (4) Nicotine addiction: Status: Acute Qualifiers: Nicotine product type: cigarettes Code(s): F17.200 - Nicotine dependence, unspecified, uncomplicated Plan cymbalta 60mg daily Medications: New nicotine (polacrilex) 2 mg buccal Q2H 50 ea 1RF Counseling and coordination of Care Pt. Self Management counseling: Exercise, Maintenance-social rhythm, Mindfulness, Mod caffeine/ETOH intake, Nutrition education and improvement and Sleep hygiene Medication management counseling: Effectiveness, Side effects, Dosing range, Duration, Drug interaction and Adherence Diagnosis and Prognosis Counseling: Accuracy of diagnosis, Prognosis over time, Impact of diagnosis on life functions, Impact of family relationship, Problematic behaviors secondary to diagnosis and Adequacy of current interventions Details: I spent 35 minutes reviewing the record, seeing the patient and documenting in the medical record. Counseling provided to the patient/caregiver as outlined below. Addressed patient/caregiver concerns regarding current medication regime including effective adherence. Addressed patient/caregiver concerns regarding diagnosis and prognosis including accuracy of diagnosis, prognosis over time, impact of diagnosis. Addressed patient/caregiver concerns regarding impact of recent stressors. 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 raised by father and grandmother due to bio mom's mental health; has one sister 1.5 yrs older Substance History: THC every night - smal amount; ETOH 2 times a month; no other drugs Trauma History: yes Coding Level of Care Code Tele Est Pt Level 4 (73566) Diagnoses PTSD (post-traumatic stress disorder) F43.10 ADHD (attention deficit hyperactivity disorder), combined type F90.2 STEFANY (generalized anxiety disorder) F41.1 Nicotine addiction F17.200 Nicotine product type: cigarettes
--- OUTSIDE RECORDS SUMMARY | 2024-07-23 18:16 | XMS_ITS | Encounter Summary ---
Author Organization [facility] Address [address] [place] [address] Phone Care Team Providers Care Lard Refiner Name Role Phone Josep Nolasco MD Primary Care Provider Unavailabl e Encounter Details Date Type Department Care Team (Late st Contact Info) Description 01/19/2012 Documentation EM Family Medicine [address] [place] [address] Family Medicine, Physician [address] [place] [address] Social History Tobacco Use Types Packs/Day Years [...] on filedocumented in this encounter Care Teams Lard Refiner Relationship Specialty Start Date End Date Josep Nolasco MD PCP - General 09/17/16 03/17/22 documented as of this encounter
== END 2024-07-23 17:48 | disposition home or self-care (01) ==
LOC: HO.HOP 17:47
PROVIDERS: PCP Physician Assistant; Visit Provider Clinical Nurse Specialist Psychiatric/Mental Health
DX: F43.10 Post-traumatic stress disorder, unspecified (principal); F90.2 Attention-deficit hyperactivity disorder, combined type; F41.1 Generalized anxiety disorder; F17.200 Nicotine dependence, unspecified, uncomplicated
CPT/HCPCS: 99214

== ENCOUNTER 2024-08-30 16:24 | Outpatient (AMB) | payer OTHER, SELFPAY ==
--- NOTE | 2024-08-30 16:09 | MHC.OFFVISPS ---
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 pt improved with duloxetine ; sleep improved; has only been on the 60mg daily for 4 days; pt reports still overthinking at times; still has some anxiety;motivated to improve self care; wants to quit tobacco. Denies SI or HI. He is enjoying work and recently got a promotion. He is concerned about concentration and focus; He plans to start school again in and would like to try meds for ADHD again. He has hx of ADHD diagnosis. He always had trouble in school. He reports low motivation. He says he was disruptive in class. he would maravilla through his work and then talk too much or distract the other kids. he was constantly out of his seat. He would be told by teachers that he was capable but talked too much; he has trouble focusing and paying attention He did little home work due to the lack of structure at home and very little discipline. He says he went to [facility] and had a counselor there and a employment coach which helped tremendously and he graduated in 3 yrs and now is at [employer] studying psychology. Past Psychiatric History: outpt counseling while at [facility] Subjective Subjective Subjective Medication Compliance: Yes Side effects from medications: No Review of Systems Medical Review of Systems: unchanged Mental Status Exam Mental Status Exam Patient Appearance: Well Grooomed and Appropriate Patient Orientation: Person, Place, Time and Situation Level of Consciousness: Awake and Appropriate Patient Behavior: Appropriate and Cooperative Mood Description: Anxious Affect Description: Anxious Patient Cognition Impaired: No Ability to Follow Directions: Good Speech Pattern: Clear and Coherent Memory Description: Intact Hallucinations: None Delusions: Not Present Thought Process: Intact, Distracted and Goal Oriented Thought Content: positive for Intact and positive for Goal Oriented Judgement: Good Telehealth Telehealth Telehealth Platform: Other (please specify) ([email or web address]) Location of provider rendering services: practice address Location of patient: address on file Patient Identification confirmed using: Name, : Yes Telehealth method: video Patient verbally consented to treatment: Yes Patient verbally consented to billing insurance company: Yes Patient informed of any privacy concerns related to visit: Yes Minutes spent on Phone/Video with Pt.: 25 Assessment and Plan Assessment & Plan (1) PTSD (post-traumatic stress disorder): Status: Acute Code(s): F43.10 - Post-traumatic stress disorder, unspecified (2) ADHD (attention deficit hyperactivity disorder), combined type: Status: Acute Code(s): F90.2 - Attention-deficit hyperactivity disorder, combined type (3) STEFANY (generalized anxiety disorder): Status: Acute Code(s): F41.1 - Generalized anxiety disorder (4) Nicotine addiction: Status: Acute Qualifiers: Nicotine product type: cigarettes Code(s): F17.200 - Nicotine dependence, unspecified, uncomplicated Plan cymbalta 60mg daily start ritalin 10mg BID Medications: New methylphenidate HCl (Ritalin) Partial Fill upon patient request. 10 mg PO BID 60 tabs 0RF Z13.39 - Encounter for screening examination for other mental health and behavioral disorders Refilled duloxetine 60 mg PO DAILY 30 caps 2RF Counseling and coordination of Care Pt. Self Management counseling: Exercise, Maintenance-social rhythm, Mindfulness, Mod caffeine/ETOH intake, Nutrition education and improvement and Sleep hygiene Medication management counseling: Effectiveness, Side effects, Dosing range, Duration, Drug interaction and Adherence Diagnosis and Prognosis Counseling: Accuracy of diagnosis, Prognosis over time, Impact of diagnosis on life functions, Impact of family relationship, Problematic behaviors secondary to diagnosis and Adequacy of current interventions Details: I spent 35 minutes reviewing the record, seeing the patient and documenting in the medical record. Counseling provided to the patient/caregiver as outlined below. Addressed patient/caregiver concerns regarding current medication regime including effective adherence. Addressed patient/caregiver concerns regarding diagnosis and prognosis including accuracy of diagnosis, prognosis over time, impact of diagnosis. Addressed patient/caregiver concerns regarding impact of recent stressors. 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 raised by father and grandmother due to bio mom's mental health; has one sister 1.5 yrs older Substance History: THC every night - smal amount; ETOH 2 times a month; no other drugs Trauma History: yes Coding Level of Care Code Tele Est Pt Level 4 (33364) Diagnoses PTSD (post-traumatic stress disorder) F43.10 ADHD (attention deficit hyperactivity disorder), combined type F90.2 STEFANY (generalized anxiety disorder) F41.1 Nicotine addiction F17.200 Nicotine product type: cigarettes
--- OUTSIDE RECORDS SUMMARY | 2024-08-30 16:25 | XMS_ITS | Encounter Summary ---
Author Organization [facility] Address [address] [place] [address] Phone Care Team Providers Care Acid Plant Helper Name Role Phone Josep Nolasco MD Primary Care Provider Unavailabl e Encounter Details Date Type Department Care Team (Late st Contact Info) Description 01/19/2012 Documentation EM Family Medicine [address] [place] [address] Family Medicine, Physician [address] [place] [address] Social History Tobacco Use Types Packs/Day Years [...] on filedocumented in this encounter Care Teams Acid Plant Helper Relationship Specialty Start Date End Date Josep Nolasco MD PCP - General 09/17/16 03/17/22 documented as of this encounter
== END 2024-08-30 16:26 | disposition home or self-care (01) ==
LOC: HO.HOP 16:24
PROVIDERS: PCP Physician Assistant; Visit Provider Clinical Nurse Specialist Psychiatric/Mental Health
DX: F43.10 Post-traumatic stress disorder, unspecified (principal); F90.2 Attention-deficit hyperactivity disorder, combined type; F41.1 Generalized anxiety disorder; F17.200 Nicotine dependence, unspecified, uncomplicated
CPT/HCPCS: 99214

== ENCOUNTER 2024-10-04 14:09 | Outpatient (AMB) | payer OTHER, SELFPAY ==
--- NOTE | 2024-10-04 13:43 | A.OFFPSYCH_ITS ---
Intake Intake Visit Reasons: f/u consultation Evening Or Night Nurse Supervisor Required: No Allergies bupropion (From Wellbutrin SR) Adverse Reaction (Intermediate, Verified 03/28/24 15:37) Agitated Medication List - Last Reconciled 10/04/24 by Margi Fox APRN duloxetine 60 mg PO DAILY nicotine (polacrilex) 2 mg buccal Q2H HPI- Psychiatric Chief Complaint: f/u consultation HPI Narrative: pt seen via telehealth for follow for depression and anxiety. pt improved with duloxetine; sleep improved; pt reports still overthinking at times; still has some anxiety;motivated to improve self care; wants to quit tobacco. Denies SI or HI. He is enjoying work and recently got a promotion. Pt reports ritalin caused some anxiety. He is concerned about concentration and focus; He has hx of ADHD diagnosis. He always had trouble in school. He reports low motivation. He says he was disruptive in class. he would maravilla through his work and then talk too much or distract the other kids. he was constantly out of his seat. He would be told by teachers that he was capable but talked too much; he has trouble focusing and paying attention He did little home work due to the lack of structure at home and very little discipline. He says he went to [facility] and had a counselor there and a dance coach which helped tremendously and he graduated in 3 yrs and now is at [employer] studying psychology. Past Psychiatric History: outpt counseling while at [facility] Subjective Subjective Subjective Medication Compliance: Yes Side effects from medications: No Review of Systems Medical Review of Systems: unchanged Mental Status Exam Mental Status Exam Patient Appearance: Well Grooomed and Appropriate Patient Orientation: Person, Place, Time and Situation Level of Consciousness: Awake and Appropriate Patient Behavior: Appropriate and Cooperative Mood Description: Anxious Affect Description: Anxious Patient Cognition Impaired: No Ability to Follow Directions: Good Speech Pattern: Clear and Coherent Memory Description: Intact Hallucinations: None Delusions: Not Present Thought Process: Intact, Distracted and Goal Oriented Thought Content: positive for Intact and positive for Goal Oriented Judgement: Good Telehealth Telehealth Telehealth Platform: Other (please specify) ([employer].nm) Location of provider rendering services: practice address Location of patient: address on file Patient Identification confirmed using: Name, : Yes Telehealth method: video Patient verbally consented to treatment: Yes Patient verbally consented to billing insurance company: Yes Patient informed of any privacy concerns related to visit: Yes Minutes spent on Phone/Video with Pt.: 25 Assessment and Plan Assessment & Plan (1) PTSD (post-traumatic stress disorder): Status: Acute Code(s): F43.10 - Post-traumatic stress disorder, unspecified (2) ADHD (attention deficit hyperactivity disorder), combined type: Status: Acute Code(s): F90.2 - Attention-deficit hyperactivity disorder, combined type (3) STEFANY (generalized anxiety disorder): Status: Acute Code(s): F41.1 - Generalized anxiety disorder (4) Nicotine addiction: Status: Acute Qualifiers: Nicotine product type: cigarettes Code(s): F17.200 - Nicotine dependence, unspecified, uncomplicated Plan increase cymbalta to 90mg daily HOLD ritalin 10mg BID Medications: New duloxetine take one daily in addition to 60mg every day for total daily dose of 90mg 30 mg PO DAILY 90 caps 1RF Counseling and coordination of Care Pt. Self Management counseling: Exercise, Maintenance-social rhythm, Mindfulness, Mod caffeine/ETOH intake, Nutrition education and improvement and Sleep hygiene Medication management counseling: Effectiveness, Side effects, Dosing range, Duration, Drug interaction and Adherence Diagnosis and Prognosis Counseling: Accuracy of diagnosis, Prognosis over time, Impact of diagnosis on life functions, Impact of family relationship, Problematic behaviors secondary to diagnosis and Adequacy of current interventions Details: I spent 30 minutes reviewing the record, seeing the patient and documenting in the medical record. Counseling provided to the patient/caregiver as outlined below. Addressed patient/caregiver concerns regarding current medication regime including effective adherence. Addressed patient/caregiver concerns regarding diagnosis and prognosis including accuracy of diagnosis, prognosis over time, impact of diagnosis. Addressed patient/caregiver concerns regarding impact of recent stressors. 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 raised by father and grandmother due to bio mom's mental health; has one sister 1.5 yrs older Substance History: THC every night - smal amount; ETOH 2 times a month; no other drugs Trauma History: yes Coding Level of Care Code Est Pt Level 4 (10441) Diagnoses PTSD (post-traumatic stress disorder) F43.10 ADHD (attention deficit hyperactivity disorder), combined type F90.2 STEFANY (generalized anxiety disorder) F41.1 Nicotine addiction F17.200 Nicotine product type: cigarettes
--- OUTSIDE RECORDS SUMMARY | 2024-10-04 14:54 | XMS_ITS | Encounter Summary ---
Author Organization [facility] Address [address] [place] [address] Phone Care Team Providers Care Faucet Polisher Name Role Phone Josep Nolasco MD Primary Care Provider Unavailabl e Encounter Details Date Type Department Care Team (Late st Contact Info) Description 01/19/2012 Documentation EM Family Medicine [address] [place] [address] Family Medicine, Physician [address] [place] [address] Social History Tobacco Use Types Packs/Day Years [...] on filedocumented in this encounter Care Teams Faucet Polisher Relationship Specialty Start Date End Date Josep Nolasco MD PCP - General 09/17/16 03/17/22 documented as of this encounter
--- OUTSIDE RECORDS SUMMARY | 2024-10-04 14:54 | XMS_ITS | Clinical Summary ---
Author Organization [facility] Address [address] [place] [id number] Phone Care Team Providers Care Volleyball Player Name Role Phone Unavailable Primary Care Provider [...] 77 11/12/2016 2:51 PM EDT Temperature 36.9 C (98.4 F) 04/22/2015 12:00 AM EDT Respiratory Rate - - Oxygen Saturation - - Inhaled Oxygen Concentration - - Weight 66.2 kg (146 lb) 11/12/2016 2:51 PM EDT Height 151.1 cm (4' 11.5 ) 11/06/2015 12:00 AM E DT Body Mass Index - - Plan of Treatment Health Maintenance Due Date Last Done Comments Men B Vaccine (1 of 2 - Standard) 2018 COVID-19 Vaccine ( - season) 2023 Influenza Vaccines (#1) 2024 11/13/19 17, 11/06/2015, 10/24/2014, Additional history exists DTaP,Tdap,and Td Vaccines (7 - Td or [...] Vaccines Completed 11/06/2015, 12/21/[address] [place] [id number] [facility] PPO
--- OUTSIDE RECORDS SUMMARY | 2024-10-04 14:54 | XMS_ITS | Encounter Summary ---
Author Organization [facility] Address [address] [place] [address] Phone Care Team Providers Care Siphon Operator Name Role Phone Josep Nolasco MD Primary Care Provider Unavailabl e Encounter Details Date Type Department Care Team (Late st Contact Info) Description 09/21/2012 Documentation EM Family Medicine [address] [place] [address] Family Medicine, Physician [address] [place] [address] Social History Tobacco Use Types Packs/Day Years [...] on filedocumented in this encounter Care Teams Siphon Operator Relationship Specialty Start Date End Date Josep Nolasco MD PCP - General 09/17/16 03/17/22 documented as of this encounter
--- OUTSIDE RECORDS SUMMARY | 2024-10-04 14:54 | XMS_ITS | Encounter Summary ---
Author Organization [facility] Address [address] [place] [address] Phone Care Team Providers Care Printed Circuit Boards Stripper Etcher Name Role Phone Josep Nolasco MD Primary Care Provider Unavailabl e Encounter Details Date Type Department Care Team (Late st Contact Info) Description 09/23/2016 Conversion Encounter [facility] - [address] [id number] Social History Tobacco Use Types Packs/Day Years [...] on filedocumented in this encounter Care Teams Printed Circuit Boards Stripper Etcher Relationship Specialty Start Date End Date Josep Nolasco MD PCP - General 09/17/16 03/17/22 documented as of this encounter
== END 2024-10-04 14:10 | disposition home or self-care (01) ==
LOC: HO.HOP 14:09
PROVIDERS: PCP Physician Assistant; Visit Provider Clinical Nurse Specialist Psychiatric/Mental Health
DX: F43.10 Post-traumatic stress disorder, unspecified (principal); F90.2 Attention-deficit hyperactivity disorder, combined type; F41.1 Generalized anxiety disorder; F17.200 Nicotine dependence, unspecified, uncomplicated
CPT/HCPCS: 99214

== ENCOUNTER → 2024-10-04 14:09 | Outpatient (BNVA) | payer OTHER, SELFPAY | PROVIDERS: PCP Physician Assistant; Visit Provider Clinical Nurse Specialist Psychiatric/Mental Health | DX: F41.1 Generalized anxiety disorder (principal); F43.10 Post-traumatic stress disorder, unspecified; F17.200 Nicotine dependence, unspecified, uncomplicated | CPT/HCPCS: 99212 ==